=== PATIENT | male | born 1960 | race Caucasian/White ===

== ENCOUNTER 2020-09-17 08:49 | Outpatient (REF) | payer MEDICARE, MEDICAID, SELFPAY ==
--- NOTE | 2020-09-20 08:45 | MHC.AU.P13 ---
Adult Audiological Evaluation Date of Visit: 09/17/20 Reason for Appointment: History of hearing loss. Patient arrives to determine if there has been a change in hearing. Patient reports that he has been experiencing significant sinus congestion. 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 Medical History: Medical History: Diabetes, Head Injury, High Blood Pressure Hearing Instrument History- Right Ear: [employer]ilities Specialist: [employer] Model: Spaces 2 Host M50-312 Serial Number: [id number] Battery Size: 312 Repair Warranty: 07/27/2022 Loss and Damage Warranty: 07/27/2022 Dispensed By: [facility] Date of Fittin05/07/2019 Hearing Instrument History- Left Ear: Regional Facilities Specialist: [employer] Model: Spaces 2 Host M50-312 Serial Number: [id number] Battery Size: 312 Warranty: 07/27/2022 Loss and Damage Warranty: Loss and Damage used for the left instrument Dispensed By: [facility] Date of Fittin05/07/2019 Otoscopy: Right Ear: Partial cerumen- not occluding Left Ear: Partial cerumen- not occluding Tympanometry: Tympanometry performed due to: History of allergies/congestion Right Ear: Normal Middle Ear System (Type A) Left Ear: Hypercompliant Middle Ear System (Type Ad) Hearing Evaluation: Transducer(s) Used: Insert Earphones Method: Conventional Audiometry Stimuli Used: Pure Tones Right Ear: Description of Hearing: Borderline-mild sloping to moderately-severe mixed hearing loss Left Ear: Description of Hearing: Mild sloping to moderately-severe mixed hearing loss Speech Recognition Threshold (SRT): Method Used: Recorded Lists Stimuli Used: Spondee Words Right Ear: 30 dBHL Left Ear: 35 dBHL Word Discrimination: Method: Recorded Lists Word Lists Used: NU-6 Right Ear: 96% at 70 dBHL Left Ear: 88% 70 dBHL Most Comfortable Level (MCL): Right Ear: 70 dBHL Left Ear: 70 dBHL Comparison: Compared to most recent evaluation: There is a conductive component present in today's test, likely a result of patient's significant congestion. The bone conduction thresholds are stable. Recommendations: Audiological re-evaluation in one year. See Hearing Aid Follow-Up note for more information. Diagnosis: Primary Diagnosis: H90.6 Mixed Hearing Loss, Bilateral Services Performed: Comprehensive Audiological Evaluation (CPT 06338), Tympanometry (CPT 08438) Signature: Provider: Salvatore Doll, TASHA-A
== END 2020-09-17 08:50 | disposition home or self-care (01) ==
LOC: HO.SH 08:49
PROVIDERS: Visit Provider Nurse Practitioner Family
DX: Z46.1 Encounter for fitting and adjustment of hearing aid (principal); H90.6 Mixed conductive and sensorineural hearing loss, bilateral
CPT/HCPCS: 92557; 92567; 92593

== ENCOUNTER 2021-05-04 13:05 | Outpatient (RCR) | payer MEDICARE, MEDICAID, SELFPAY | END 2021-05-24 14:50 | disposition home or self-care (01) | LOC: HO.WCC 13:05 | PROVIDERS: PCP Nurse Practitioner Family; Visit Provider Surgery | DX: I87.331 Chronic venous hypertension (idiopathic) with ulcer and inflammation of right lower extremity (principal); L97.812 Non-pressure chronic ulcer of other part of right lower leg with fat layer exposed; I87.312 Chronic venous hypertension (idiopathic) with ulcer of left lower extremity; L97.822 Non-pressure chronic ulcer of other part of left lower leg with fat layer exposed; E11.51 Type 2 diabetes mellitus with diabetic peripheral angiopathy without gangrene; E11.40 Type 2 diabetes mellitus with diabetic neuropathy, unspecified; Z79.4 Long term (current) use of insulin; Z79.899 Other long term (current) drug therapy; Z87.891 Personal history of nicotine dependence | CPT/HCPCS: 29580; 99212 ==

== ENCOUNTER 2021-06-28 09:01 | Outpatient (RCR) | payer MEDICARE, MEDICAID, SELFPAY | END 2021-10-20 09:10 | disposition home or self-care (01) | LOC: HO.WCC 09:01 | PROVIDERS: PCP Nurse Practitioner Family; Visit Provider Physician Assistant | DX: E11.622 Type 2 diabetes mellitus with other skin ulcer (principal); E11.51 Type 2 diabetes mellitus with diabetic peripheral angiopathy without gangrene; I87.332 Chronic venous hypertension (idiopathic) with ulcer and inflammation of left lower extremity; L97.822 Non-pressure chronic ulcer of other part of left lower leg with fat layer exposed; S81.012D Laceration without foreign body, left knee, subsequent encounter; Q82.0 Hereditary lymphedema; L08.9 Local infection of the skin and subcutaneous tissue, unspecified; I87.321 Chronic venous hypertension (idiopathic) with inflammation of right lower extremity; E11.40 Type 2 diabetes mellitus with diabetic neuropathy, unspecified; E66.01 Morbid (severe) obesity due to excess calories; Z87.891 Personal history of nicotine dependence | CPT/HCPCS: 11042; 11045; 29581; 97597; 97598; 99212; 99213; 99214; 99215 ==

== ENCOUNTER 2021-11-02 10:00 | Outpatient (RCR) | payer OTHER, MEDICARE, MEDICAID, SELFPAY | END 2021-11-07 11:35 | disposition home or self-care (01) | LOC: HO.OT 10:00 | PROVIDERS: PCP Nurse Practitioner Family; Visit Provider Physician Assistant | DX: I89.0 Lymphedema, not elsewhere classified (principal) | CPT/HCPCS: 97110; 97140; 97167; 99212 ==

== ENCOUNTER 2022-01-31 09:00 | Outpatient (RCR) | payer MEDICARE, MEDICAID, SELFPAY | END 2022-02-10 10:46 | disposition home or self-care (01) | LOC: HO.WCC 09:00 | PROVIDERS: Visit Provider Physician Assistant | DX: E11.622 Type 2 diabetes mellitus with other skin ulcer (principal); E11.51 Type 2 diabetes mellitus with diabetic peripheral angiopathy without gangrene; L97.822 Non-pressure chronic ulcer of other part of left lower leg with fat layer exposed; S81.011D Laceration without foreign body, right knee, subsequent encounter; L03.116 Cellulitis of left lower limb; Q82.0 Hereditary lymphedema; E66.01 Morbid (severe) obesity due to excess calories; E11.40 Type 2 diabetes mellitus with diabetic neuropathy, unspecified; E11.22 Type 2 diabetes mellitus with diabetic chronic kidney disease; I12.9 Hypertensive chronic kidney disease with stage 1 through stage 4 chronic kidney disease, or unspecified chronic kidney disease; N18.9 Chronic kidney disease, unspecified; Z79.4 Long term (current) use of insulin | CPT/HCPCS: 99214 ==

== ENCOUNTER → 2022-01-31 09:14 | Outpatient (REF) | payer MEDICARE, MEDICAID, SELFPAY | LOC: HO.CARD 09:14 | PROVIDERS: Visit Provider Internal Medicine Cardiovascular Disease | DX: Z13.89 Encounter for screening for other disorder (principal) ==

== ENCOUNTER 2022-02-28 | Outpatient (RCR) | payer MEDICARE, MEDICAID, SELFPAY | END 2022-04-28 09:13 | disposition home or self-care (01) | LOC: HO.WCC | PROVIDERS: Visit Provider Physician Assistant | DX: E11.622 Type 2 diabetes mellitus with other skin ulcer (principal); L97.812 Non-pressure chronic ulcer of other part of right lower leg with fat layer exposed; E11.40 Type 2 diabetes mellitus with diabetic neuropathy, unspecified; E11.51 Type 2 diabetes mellitus with diabetic peripheral angiopathy without gangrene; E11.29 Type 2 diabetes mellitus with other diabetic kidney complication; L03.116 Cellulitis of left lower limb; Q82.0 Hereditary lymphedema; I10 Essential (primary) hypertension; E66.01 Morbid (severe) obesity due to excess calories; Z87.891 Personal history of nicotine dependence | CPT/HCPCS: 11042; 99213; 99214 ==

== ENCOUNTER 2022-06-15 10:16 | Outpatient (RCR) | payer MEDICARE, MEDICAID, SELFPAY | END 2022-06-28 13:35 | disposition home or self-care (01) | LOC: HO.WCC 10:16 | PROVIDERS: Visit Provider Physician Assistant | DX: Z09 Encounter for follow-up examination after completed treatment for conditions other than malignant neoplasm (principal); Q82.0 Hereditary lymphedema; E11.40 Type 2 diabetes mellitus with diabetic neuropathy, unspecified; E11.22 Type 2 diabetes mellitus with diabetic chronic kidney disease; E11.65 Type 2 diabetes mellitus with hyperglycemia; E11.51 Type 2 diabetes mellitus with diabetic peripheral angiopathy without gangrene; I12.9 Hypertensive chronic kidney disease with stage 1 through stage 4 chronic kidney disease, or unspecified chronic kidney disease; N18.9 Chronic kidney disease, unspecified; E66.01 Morbid (severe) obesity due to excess calories; Z87.891 Personal history of nicotine dependence | CPT/HCPCS: 99213 ==

== ENCOUNTER 2022-07-27 08:45 | Outpatient (RCR) | payer MEDICARE, MEDICAID, SELFPAY | END 2022-09-19 13:53 | disposition home or self-care (01) | LOC: HO.WCC 08:45 | PROVIDERS: Visit Provider Surgery | DX: Z09 Encounter for follow-up examination after completed treatment for conditions other than malignant neoplasm (principal); E11.65 Type 2 diabetes mellitus with hyperglycemia; Q82.0 Hereditary lymphedema; Z87.2 Personal history of diseases of the skin and subcutaneous tissue | CPT/HCPCS: 29581; 97597; 97598; 99212; 99213 ==

== ENCOUNTER 2022-11-15 07:48 | Outpatient (RCR) | payer OTHER, SELFPAY | END 2022-12-15 13:46 | disposition home or self-care (01) | LOC: HO.WCC 07:48 | PROVIDERS: PCP Nurse Practitioner Family; Visit Provider Surgery | DX: E11.622 Type 2 diabetes mellitus with other skin ulcer (principal); I87.312 Chronic venous hypertension (idiopathic) with ulcer of left lower extremity; E11.51 Type 2 diabetes mellitus with diabetic peripheral angiopathy without gangrene; L97.822 Non-pressure chronic ulcer of other part of left lower leg with fat layer exposed; S91.301D Unspecified open wound, right foot, subsequent encounter; Q82.0 Hereditary lymphedema; E11.40 Type 2 diabetes mellitus with diabetic neuropathy, unspecified; E11.22 Type 2 diabetes mellitus with diabetic chronic kidney disease; I12.9 Hypertensive chronic kidney disease with stage 1 through stage 4 chronic kidney disease, or unspecified chronic kidney disease; N18.9 Chronic kidney disease, unspecified; E66.9 Obesity, unspecified; Z87.891 Personal history of nicotine dependence | CPT/HCPCS: 11042; 11045; 97597; 97598; 99212 ==

== ENCOUNTER 2023-01-25 13:01 | Outpatient (RCR) | payer OTHER, SELFPAY | END 2023-02-08 16:00 | disposition home or self-care (01) | LOC: HO.WCC 13:01 | PROVIDERS: PCP Nurse Practitioner Family; Visit Provider Surgery | DX: I87.313 Chronic venous hypertension (idiopathic) with ulcer of bilateral lower extremity (principal); L97.822 Non-pressure chronic ulcer of other part of left lower leg with fat layer exposed; L97.812 Non-pressure chronic ulcer of other part of right lower leg with fat layer exposed; E11.40 Type 2 diabetes mellitus with diabetic neuropathy, unspecified; E11.51 Type 2 diabetes mellitus with diabetic peripheral angiopathy without gangrene; E11.22 Type 2 diabetes mellitus with diabetic chronic kidney disease; I12.0 Hypertensive chronic kidney disease with stage 5 chronic kidney disease or end stage renal disease; N18.6 End stage renal disease; Q82.0 Hereditary lymphedema; Z79.85 Long-term (current) use of injectable non-insulin antidiabetic drugs; Z79.4 Long term (current) use of insulin; Z79.82 Long term (current) use of aspirin; Z79.899 Other long term (current) drug therapy | CPT/HCPCS: 11042; 99213 ==

== ENCOUNTER 2023-11-20 15:35 | Observation (INO) | payer MEDICARE, MEDICAID, SELFPAY ==
--- NOTE | ~2023-11-20 | MR_ITS ---
EXAMINATION: MR BRAIN WITHOUT CONTRAST CLINICAL INFORMATION: Encephalopathy. COMPARISON: CT head from 11/20/2023. TECHNIQUE: MRI of the brain was obtained using routine sequences without contrast. FINDINGS: No focal restricted diffusion is demonstrated to suggest acute or subacute cerebral ischemia. No evidence of acute or chronic hemorrhagic products on heme-sensitive imaging. Scattered and partially confluent periventricular, deep white matter, and brainstem T2 FLAIR hyperintensities consistent with moderate underlying microangiopathy. There is a degree of generalized cerebral volume loss with prominence of both the ventricles and sulcal spaces. However, there appears to be mildly disproportionate prominence of the ventricles. The posterior callosal angle is decreased (68 degrees) when measured on a corrected coronal image, orthogonal to the anterior commissure-posterior commissure line. No abnormal mass effect. No midline shift. Normal appearance of the pituitary gland. Normal positioning of the cerebellar tonsils. Normal arterial and venous vascular flow voids are present. Normal, homogeneous marrow signal. Atelectasis of the right maxillary sinus. Mild mucosal thickening of the paranasal sinuses. No signal abnormalities within the mastoids. MR/MR head/brain wo con IMPRESSION: 1. No acute intracranial abnormalities. 2. Moderate underlying microangiopathy. 3. There is a degree of generalized cerebral volume loss with prominence of both the ventricles and sulcal spaces. However, there appears to be mildly disproportionate prominence of the ventricles. This may be due to disproportionate central volume loss; however, correlation with symptoms of potential superimposed normal pressure hydrocephalus is recommended.
--- NOTE | ~2023-11-20 | CT_ITS ---
EXAMINATION: CT HEAD WITHOUT CONTRAST CLINICAL INFORMATION: Multiple falls. Progressive confusion. COMPARISON: None available. TECHNIQUE: Contiguous axial imaging was performed from the skull base to vertex without intravenous administration of contrast. This CT examination was performed using dose optimization techniques as appropriate, variously including the following: *Automated exposure control. *Adjustment of mA and/or kV according to patient size (this includes techniques or standardized protocols for targeted exams where dose is matched to indication/reason for exam; i.e. extremities or head). *Use of iterative reconstruction technique. DLP: 822 mGy-cm FINDINGS: There is no evidence of acute intracranial hemorrhage or edematous territorial infarction. Mcguire-white matter differentiation is preserved. Scattered and partially confluent hypoattenuation in the periventricular and deep white matter are consistent with moderate microangiopathy. There is a degree of generalized cerebral volume loss with prominence of both the ventricles and sulcal spaces. However, there appears to be mildly disproportionate prominence of the ventricles. The posterior callosal angle is decreased (71 degrees) when measured on a corrected coronal image, orthogonal to the anterior commissure-posterior commissure line. No abnormal mass effect or midline shift. No extra-axial fluid collections. Calcific atherosclerotic disease of the intracranial internal carotid arteries. No hyperdense vessel sign. No acute soft tissue or osseous abnormalities. Mild to moderate mucosal thickening of the right maxillary sinus with hyperostotic changes of the downs. Mild mucosal thickening of the remaining paranasal sinuses. Moderate leftward nasal septal deviation with spurring. The mastoid air cells and middle ear cavities are clear. CT/CT head/brain wo IV con IMPRESSION: 1. No evidence of acute intracranial hemorrhage or edematous territorial infarction. 2. Moderate underlying microangiopathy. 3. There is a degree of generalized cerebral volume loss with prominence of both the ventricles and sulcal spaces. However, there appears to be mildly disproportionate prominence of the ventricles. This may be due to disproportionate central volume loss; however, correlation with symptoms of potential superimposed normal pressure hydrocephalus is recommended.
[2023-11-20 15:45] VITALS: BP 180/96; PULSE 80; O2SAT 92
[2023-11-20 15:53] VITALS: BP 161/85; PULSE 79; RESP 16; TEMP 36.7; O2SAT 96; BMI 47.3
[2023-11-20 16:08] LABS: Glucose, Whole Blood 409 mg/dL (60-115)
--- NOTE | 2023-11-20 16:27 | ED.GENADULT ---
HPI - General Adult General Chief complaint: Altered Mental Status Stated complaint: hyperglycemic at nephrology appt, lethargic Time Seen by Provider: 11/20/23 16:17 Source: patient Mode of arrival: EMS Limitations: no limitations History of Present Illness HPI narrative: Patient is a 63-year-old male who presents to the emergency department coming today from? Nephrology's office. Advised by nursing staff he was brought in by ambulance from Dr. Sparks's office, although I do not have any available records from Nephrology, unclear whether he has ever been seen by this Nephrology office in the past or whether this was a follow-up visit. When asking the patient why he is here he reports that he has to infections 1 in the urinary tract and 1 higher in the urinary tract. He states he has not currently on antibiotics. However, on initial exam he is noted to have a PICC line to the right upper arm, when asked why this is there he states that he was seen at [facility] and was advised that he has 2 bugs in his blood . Reports he is taking antibiotics twice a day, though it is unclear who is administering these. He is oriented to person disoriented to place time and event. He denies any recent fall or head injury Related Data Allergies Allergy/AdvReac Type Severity Reaction Status Date / Time Unable to Assess Allergy Verified 11/20/23 16:18 Review of Systems Review of Systems: Yes all other systems are reviewed and are negative PMFSH Past Medical History Attestation statement: The following information was validated with the patient. Source: old records reviewed Social History Social History Smoked in Last 30 Days: No Use of substances other than those prescribed or required for medical reasons: No Advance Directives: No Advance Directives Information Provided: No Physical Exam ED Vital Signs: Vital Signs - 24 hr 11/20/23 15:53 11/20/23 18:00 11/20/23 19:06 Temperature 98.1 F 98.0 F 97.2 F Pulse Rate 79 72 77 Respiratory Rate 16 16 16 Blood Pressure 161/85 H 161/88 H 176/91 H Pulse Oximetry 96 97 95 Oxygen Delivery Method Room Air Room Air Room Air 11/20/23 21:35 11/21/23 00:00 11/21/23 02:49 Temperature 98.1 F 98.2 F 97.9 F Pulse Rate 84 76 74 Respiratory Rate 16 16 16 Blood Pressure 149/89 H 156/69 H 146/83 H Pulse Oximetry 98 93 95 Oxygen Delivery Method Room Air Room Air Room Air 11/21/23 04:15 11/21/23 06:23 Temperature Pulse Rate 75 71 Respiratory Rate 20 16 Blood Pressure 137/77 157/79 H Pulse Oximetry 95 96 Oxygen Delivery Method Room Air Room Air BMI result Body Mass Index 47.3 Appearance: Alert.?Oriented to person disoriented to place time and event. No acute distress.?Normal affect. Eyes: Pupils equal, round and reactive to light.? ENT: Pharynx normal.?? Neck: Normal inspection.? Neck supple.?? CVS: Heart sounds normal. Normal heart rate and rhythm.? Pulses normal.?? Respiratory: No respiratory distress.? Lung sounds clear to auscultation bilaterally?? Abdomen: Soft diffuse tenderness upon palpation. Normoactive bowel sounds. Bilateral CVA tenderness Skin: Skin warm and dry.? Normal skin color.? ? Extremities: No lower extremity edema.? No calf ttp? Neuro: Moves all extremities spontaneously. Sensation intact bilaterally. No focal neuro deficits. Course Course Course Narrative: 11/21/2023 0708 --> Physician observation continues. Patient followed by CM. Reevaluation(s) Reevaluation #1: Received records from [facility]; he presented there on 11/03/2023 was admitted and discharged on 11/06; sepsis, metabolic encephalopathy, severe cystitis with bilateral ascending pyelitis and pyelonephritis E coli resistant to Zosyn therefore transitioned to your opinion in discharged with midline which was inserted on 11/09/2023 for ertapenem while at short-term rehab, anticipated last dose of antibiotics would be 11/20/2023. Per [facility] records baseline creatinine of 2.4, presented there with creatinine of 3.5, at the time of discharge continued to be around 3.7, nephrology anticipating that this will likely improve as the ATN improves. Time: 17:40 Reevaluation #2: CBC without leukocytosis, normocytic anemia. VBG within normal range, non-anion gap hyperglycemia, no evidence of DKA. Patient receive insulin lispro 10 units subcutaneously Creatinine appears at baseline when compared to records from [facility] as noted above. Time: 18:34 Reevaluation #3: Urinalysis is without evidence of infection, has baseline incontinence. Patient has HCP/sister Ginger is at bedside. At this time she informs me that patient has had multiple falls over the past week reportedly at least 4. She was not made aware of these by staff at the facility. He has not had any evaluation or CT scan after these falls. It is unclear whether there has been any head strike. Evidently daughter was made aware of these falls when she went into visit, unfortunately she did not discuss this with me earlier when we spoke on the phone. Since being in the emergency department he has reported to his daughter and sister that he is seeing bugs crawling on the ceiling, they confirm at this time that although he has had progressive confusion even since his [facility] admission, he has not had visual hallucinations or any history of visual hallucinations. Plan to obtain CT of the head to exclude acute pathology. Will also check ammonia level just to be certain that this is not cause for progression. Think less likely that hallucinations are medication side effect from your opinion. Family expressing concern that they did not wish he return to [facility] re[facility] Time: 21:01 Additional Reevaluation(s): 23:00 CT head without acute intracranial pathology. Placed in physician observation, vitals stable, no distress, PT/case management evaluation to ensue, as family requested that he not return to current short-term rehab. In addition will obtain Psychiatry consultation for new vision hallucinations with progressive confusion. Medications Administered Discontinued Medications Generic Name Dose Route Start Last Admin Trade Name Freq PRN Reason Stop Dose Admin Insulin Human Lispro 10 unit 11/20/23 18:36 11/20/23 18:58 Insulin Lispro 100 Unit/Ml 3 Ml Vial SUBCUT 11/20/23 18:37 10 unit ONCE ONE Administration Medical Decision Making Medical Decision Making [facility] Narrative: Patient is a 63-year-old male past medical history of CKD stage 3, hypertension, type 2 diabetes, history of MRSA, hypertension, depression, BUD, obesity presenting to emergency department from Nephrology office due to lethargy altered mental status and hyperglycemia. 16:36 - Spoke with patients daughter Tarah - reports 2 weeks ago dx. UTI, bacteremia ?E. Coli at [facility]. Currently resides at [place] for acute rehab. Per Tarah the confusion has been worse, requires 2 person assist for transfer. Daughter reports he has previously been prescribed Mounjaro for management of DM, SNF staff had changed to Ellie. aTrah advises me I may contact patients sister who is an RN/ HCP - Ginger Potter [phone] Differential Diagnosis Differential Diagnoses: The differential diagnosis associated with the presentation includes (Pyelonephritis, hydronephrosis, obstructive calculi, bacteremia, metabolic encephalopathy, electrolyte derangement, YARELIS v. CKD, DKA, hyperglycemia, poorly managed diabetes mellitus) Admission/Observation Consideration of admission/observation: Escalation of care including admission/observation considered (See narrative above in course narrative for further detail) Lab Data MDM Lab Attestation statement: I reviewed the patient's lab results. (See course narrative) 11/20/23 17:26 11/20/23 17:26 Labs: Lab Results 11/20/23 11/20/23 11/20/23 Range/Units 16:03 17:26 17:28 WBC 7.1 (4.8-10.8) X10*3/uL RBC 3.95 L (4.60-5.80) X10*6/uL Hgb 11.9 L (14.0-18.0) g/dl Hct 36.3 L (42.0-52.0) % MCV 91.9 (80.0-98.0) fL MCH 30.1 (27.0-33.0) pg MCHC 32.8 (31.0-36.0) g/dl RDW 12.7 (11.0-16.0) % Plt Count 284 (160-400) X10*3/uL MPV 9.7 (9.4-12.4) fL Immature Gran % (Auto) 0.1 (0.0-0.4) % Neut % (Auto) 69.8 (45-73) % Lymph % (Auto) 17.5 L (20-40) % [place] % (Auto) 8.3 (2-11) % Eos % (Auto) 3.9 (0-4) % Baso % (Auto) 0.4 (0-2) % Lymph # (Auto) 1.3 (1.2-4.9) X10*3/uL Marathon # (Auto) 0.6 (0.1-1.2) X10*3/uL Eos # (Auto) 0.3 (0.0-0.4) X10*3/uL Baso # (Auto) 0.0 (0.0-0.2) X10*3/uL Abs Immat Gran (auto) 0.01 (0.00-0.03) X10*3/uL Absolute Neuts (auto) 5.0 (2.0-8.3) x10*3/uL Absolute Nucleated RBC 0.000 (0.0-0.012) X10*3/uL Nucleated RBC % (auto) 0.0 (0.0-0.2) /100WBC VBG pH (7.32-7.43) VBG pCO2 mmHg VBG pO2 mmHg VBG HCO3 (22-26) mmol/L VBG O2 Saturation % VBG Base Excess mmol/L Sodium 140 (135-145) mmol/L Potassium 4.8 (3.3-5.1) mmol/L Chloride 109 H (96-108) mmol/L Carbon Dioxide 25 (22-29) mmol/L Anion Gap 11 L (12-20) BUN 50 H (9-16) mg/dL Creatinine 3.57 H (0.5-1.4) mg/dL Estim Creat Clear Calc 31.0 Estimated GFR 17 POC Glucose 409 H* (60-115) mg/dL Random Glucose 444 H* (60-115) mg/dL Lactic Acid 1.1 (0.5-2.0) mmol/L Calcium 9.1 (8.4-10.2) mg/dL Total Bilirubin 0.2 (0.0-1.0) mg/dL AST 18 (5-37) U/L ALT 24 (0-40) U/L Alkaline Phosphatase 125 H (39-117) U/L Ammonia (13-55) umol/L Troponin I High Sens 3.4 (<3.5-35.0) ng/L B-Natriuretic Peptide 13 (<100) pg/mL Total Protein 6.6 (6.5-8.0) g/dL Albumin 3.1 L (3.5-5.0) g/dL Beta-Hydroxybutyrate 0.04 (0.02-0.27) mmol/L Urine Color Urine Appearance Urine pH (5.0-9.0) Ur Specific [place] (1.005-1.025) Urine Protein (Neg-Trace) mg/dL Urine Glucose (UA) (Negative) mg/dL Urine Ketones (Negative) mg/dL Urine Blood (Negative) Urine Nitrite (Negative) Ur Leukocyte Esterase (Negative) Urine RBC (0-2) /HPF Urine WBC (0-5) /HPF Ur Squamous Epith Cells (0-2) /HPF Urine Bacteria (None Seen) Hyaline Casts (0-2) /LPF 11/20/23 11/20/23 11/20/23 Range/Units 17:31 18:10 19:29 WBC (4.8-10.8) X10*3/uL RBC (4.60-5.80) X10*6/uL Hgb (14.0-18.0) g/dl Hct (42.0-52.0) % MCV (80.0-98.0) fL MCH (27.0-33.0) pg MCHC (31.0-36.0) g/dl RDW (11.0-16.0) % Plt Count (160-400) X10*3/uL MPV (9.4-12.4) fL Immature Gran % (Auto) (0.0-0.4) % Neut % (Auto) (45-73) % Lymph % (Auto) (20-40) % Marathon % (Auto) (2-11) % Eos % (Auto) (0-4) % Baso % (Auto) (0-2) % Lymph # (Auto) (1.2-4.9) X10*3/uL Marathon # (Auto) (0.1-1.2) X10*3/uL Eos # (Auto) (0.0-0.4) X10*3/uL Baso # (Auto) (0.0-0.2) X10*3/uL Abs Immat Gran (auto) (0.00-0.03) X10*3/uL Absolute Neuts (auto) (2.0-8.3) x10*3/uL Absolute Nucleated RBC (0.0-0.012) X10*3/uL Nucleated RBC % (auto) (0.0-0.2) /100WBC VBG pH 7.36 (7.32-7.43) VBG pCO2 44 mmHg VBG pO2 57 mmHg VBG HCO3 25 (22-26) mmol/L VBG O2 Saturation 86.0 % VBG Base Excess 0.2 mmol/L Sodium (135-145) mmol/L Potassium (3.3-5.1) mmol/L Chloride (96-108) mmol/L Carbon Dioxide (22-29) mmol/L Anion Gap (12-20) BUN (9-16) mg/dL Creatinine (0.5-1.4) mg/dL Estim Creat Clear Calc Estimated GFR POC Glucose 373 H* (60-115) mg/dL Random Glucose (60-115) mg/dL Lactic Acid (0.5-2.0) mmol/L Calcium (8.4-10.2) mg/dL Total Bilirubin (0.0-1.0) mg/dL AST (5-37) U/L ALT (0-40) U/L Alkaline Phosphatase (39-117) U/L Ammonia (13-55) umol/L Troponin I High Sens (<3.5-35.0) ng/L B-Natriuretic Peptide (<100) pg/mL Total Protein (6.5-8.0) g/dL Albumin (3.5-5.0) g/dL Beta-Hydroxybutyrate (0.02-0.27) mmol/L Urine Color Yellow Urine Appearance Clear Urine pH 5.5 (5.0-9.0) Ur Specific [place] 1.025 (1.005-1.025) Urine Protein >=1000 (4+) H (Neg-Trace) mg/dL Urine Glucose (UA) >=1000 H (Negative) mg/dL Urine Ketones Negative (Negative) mg/dL Urine Blood Negative (Negative) Urine Nitrite Negative (Negative) Ur Leukocyte Esterase Negative (Negative) Urine RBC 0-2 (0-2) /HPF Urine WBC 0-5 (0-5) /HPF Ur Squamous Epith Cells 0-2 (0-2) /HPF Urine Bacteria None Seen (None Seen) Hyaline Casts 0-2 (0-2) /LPF 11/20/23 11/20/23 11/20/23 Range/Units 19:57 21:38 21:44 WBC (4.8-10.8) X10*3/uL RBC (4.60-5.80) X10*6/uL Hgb (14.0-18.0) g/dl Hct (42.0-52.0) % MCV (80.0-98.0) fL MCH (27.0-33.0) pg MCHC (31.0-36.0) g/dl RDW (11.0-16.0) % Plt Count (160-400) X10*3/uL MPV (9.4-12.4) fL Immature Gran % (Auto) (0.0-0.4) % Neut % (Auto) (45-73) % Lymph % (Auto) (20-40) % Marathon % (Auto) (2-11) % Eos % (Auto) (0-4) % Baso % (Auto) (0-2) % Lymph # (Auto) (1.2-4.9) X10*3/uL Marathon # (Auto) (0.1-1.2) X10*3/uL Eos # (Auto) (0.0-0.4) X10*3/uL Baso # (Auto) (0.0-0.2) X10*3/uL Abs Immat Gran (auto) (0.00-0.03) X10*3/uL Absolute Neuts (auto) (2.0-8.3) x10*3/uL Absolute Nucleated RBC (0.0-0.012) X10*3/uL Nucleated RBC % (auto) (0.0-0.2) /100WBC VBG pH (7.32-7.43) VBG pCO2 mmHg VBG pO2 mmHg VBG HCO3 (22-26) mmol/L VBG O2 Saturation % VBG Base Excess mmol/L Sodium (135-145) mmol/L Potassium (3.3-5.1) mmol/L Chloride (96-108) mmol/L Carbon Dioxide (22-29) mmol/L Anion Gap (12-20) BUN (9-16) mg/dL Creatinine (0.5-1.4) mg/dL Estim Creat Clear Calc Estimated GFR POC Glucose 311 H 275 H (60-115) mg/dL Random Glucose (60-115) mg/dL Lactic Acid (0.5-2.0) mmol/L Calcium (8.4-10.2) mg/dL Total Bilirubin (0.0-1.0) mg/dL AST (5-37) U/L ALT (0-40) U/L Alkaline Phosphatase (39-117) U/L Ammonia 14 (13-55) umol/L Troponin I High Sens (<3.5-35.0) ng/L B-Natriuretic Peptide (<100) pg/mL Total Protein (6.5-8.0) g/dL Albumin (3.5-5.0) g/dL Beta-Hydroxybutyrate (0.02-0.27) mmol/L Urine Color Urine Appearance Urine pH (5.0-9.0) Ur Specific [place] (1.005-1.025) Urine Protein (Neg-Trace) mg/dL Urine Glucose (UA) (Negative) mg/dL Urine Ketones (Negative) mg/dL Urine Blood (Negative) Urine Nitrite (Negative) Ur Leukocyte Esterase (Negative) Urine RBC (0-2) /HPF Urine WBC (0-5) /HPF Ur Squamous Epith Cells (0-2) /HPF Urine Bacteria (None Seen) Hyaline Casts (0-2) /LPF Radiology Impression Discussion of test interpretation with radiology: I have reviewed the radiologist's reading. Radiologist Impression: CT/CT head/brain wo IV con IMPRESSION: 1. No evidence of acute intracranial hemorrhage or edematous territorial infarction. 2. Moderate underlying microangiopathy. 3. There is a degree of generalized cerebral volume loss with prominence of both the ventricles and sulcal spaces. However, there appears to be mildly disproportionate prominence of the ventricles. This may be due to disproportionate central volume loss; however, correlation with symptoms of potential superimposed normal pressure hydrocephalus is recommended. Independent Historian Clinical information obtained from an independent historian. History obtained from or confirmed by: Other (See narrative above) Critical Care Time Critical Care Time Critical Care Time: Yes Total Critical Care Time: 75 Attestation: I personally attest to this critical care time spent taking care of the patient exclusive of all other billable procedures was approximately 75 minutes including initial evaluation of patient, ordering tests, CT interpretation, medical consultation, documentation, re-evaluation. Discharge Plan Discharge Clinical Impression: Altered mental status, Hallucinations, Hyperglycemia Patient Disposition: Still a Patient
--- NOTE | 2023-11-20 17:31 | MHC.CM.ED ---
Addendum entered by Joslyn Sandoval 11/20/23 21:21: Family expressed to provider wish that patient not return to [facility]. Medical work up continuing. Addendum entered by Joslyn Sandoval 11/20/23 18:56: Patient's sister/HCP #1 Ginger Potter ([phone]), arrived and was able to provide much hx regarding patient. Pt had a TBI and cannot live alone due to memory loss.. Pt was living with her, but moved into [facility] in [place] in July of 2023. It's an PRISCA. He has med management. meals and assist with ADL's. Pt was admitted to [facility] 2 weeks ago with urosepsis and was discharged to [facility] for IV antibiotics and STR. PCP is David Willis [facility] [address] [facility] HCP #2/daughter Tarah Marcano ([phone]).Pt has a MOLST, DNR/DNI, would consider short term dialysis. The address listed at [address] [place] [address] in [place] is his mailing address and where his sister and daughter live. Pt's insurance has changed from [employer] to [employer] [facility]. CM spoke with registration with regarding address change, MOLST and insurance changes. Daughter will bring in insurance cards tonMoxie Jean. Pt has not been discharged from Pt lives in [place] Uses a walker and CPAP Family is very involved in his care. D/.C plan: Return to SNF via S Original Note: Recent medical record hospitalization received from [facility] and given to provider. Awaiting fax from [facility]. Spoke with nurse at facility. Requested progress notes, VS, labs and medication list.
[2023-11-20 17:34] LABS: MANUAL DIFF FLAG NO
[2023-11-20 17:37] LABS: VBG Base Excess 0.2 mmol/L; VBG HCO3 25 mmol/L (22-26); VBG pCO2 44 mmHg; VBG pH 7.36 (7.32-7.43); VBG pO2 57 mmHg
[2023-11-20 17:37] LABS: Venous Blood Gas Refer to POC result
[2023-11-20 17:40] LABS: Basophils Percent Auto 0.4 % (0-2); Eosinophils Absolute Auto 0.3 X10*3/uL (0.0-0.4); Eosinophils Percent Auto 3.9 % (0-4); Hematocrit 36.3 % (42.0-52.0); Hemoglobin 11.9 g/dl (14.0-18.0); Imm Gran Abs Auto 0.01 X10*3/uL (0.00-0.03); Imm Gran Pct Auto 0.1 % (0.0-0.4); Lymphocytes Absolute Auto 1.3 X10*3/uL (1.2-4.9); Lymphocytes Percent Auto 17.5 % (20-40); Mean Corpuscular HGB Conc 32.8 g/dl (31.0-36.0); Mean Corpuscular Hemoglobin 30.1 pg (27.0-33.0); Mean Corpuscular Volume 91.9 fL (80.0-98.0); Mean Platelet Volume 9.7 fL (9.4-12.4); Monocytes Absolute Auto 0.6 X10*3/uL (0.1-1.2); Monocytes Percent Auto 8.3 % (2-11); Neutrophils Percent Auto 69.8 % (45-73); Platelet Count 284 X10*3/uL (160-400); Red Blood Count 3.95 X10*6/uL (4.60-5.80); Red Cell Distribution Width 12.7 % (11.0-16.0); White Blood Count 7.1 X10*3/uL (4.8-10.8)
[2023-11-20 17:45] LABS: Lactic Acid 1.1 mmol/L (0.5-2.0)
[2023-11-20 17:50] LABS: Beta-Hydroxybutyrate 0.04 mmol/L (0.02-0.27)
[2023-11-20 17:55] LABS: B Type Natriuretic Peptide 13 pg/mL (<100)
[2023-11-20 17:56] LABS: Alanine Aminotransferase 24 U/L (0-40); Albumin Level 3.1 g/dL (3.5-5.0); Alkaline Phosphatase 125 U/L (39-117); Anion Gap 11 (12-20); Aspartate Amino Transferase 18 U/L (5-37); Bilirubin Total 0.2 mg/dL (0.0-1.0); Blood Urea Nitrogen 50 mg/dL (9-16); Calcium 9.1 mg/dL (8.4-10.2); Carbon Dioxide 25 mmol/L (22-29); Chloride 109 mmol/L (96-108); Estimated Glomerular Filt Rate 17; Glucose Random 444 mg/dL (60-115); Potassium 4.8 mmol/L (3.3-5.1); Sodium 140 mmol/L (135-145); Total Protein 6.6 g/dL (6.5-8.0)
[2023-11-20 17:57] LABS: Troponin-I High Sensitivity 3.4 ng/L (<3.5-35.0)
[2023-11-20 18:00] VITALS: BP 161/88; PULSE 72; RESP 16; TEMP 36.7; O2SAT 97
[2023-11-20] MEDS: Insulin Lispro 100 UNIT/ML 3 ML VIAL 10 UNIT SUBCUT (18:58)
[2023-11-20 19:06] VITALS: BP 176/91; PULSE 77; RESP 16; TEMP 36.2; O2SAT 95
--- NOTE | 2023-11-20 19:10 | MHC.EDTECH ---
PATIENT WAS CHANGE INTO HOSPITAL ATTIRE ,PATIENT WAS INCONTINENT OF URINE ,CARE GIVEN ,BLADDER SCAN DONE ,RN YULIANA IS AWARTE OF RESULT ,VITALS TAKEN AND PATIENT WAS HOOKED UP TO [employer] ,PATIENT WATCHING TELEVISION ,PATIENT SISTER AT BEDSIDE .
[2023-11-20 19:23] LABS: Glucose, Whole Blood 373 mg/dL (60-115)
[2023-11-20 19:42] LABS: Appearance Urine Clear; Color Urine Yellow; Glucose Urine UA >=1000 mg/dL (Negative); Leukocyte Esterase Urine Negative (Negative); Nitrite Urine Negative (Negative); PH 5.5 (5.0-9.0); Specific Gravity - Urine 1.025 (1.005-1.025); UMIC TRIGGER UACC YES; Urine Blood Negative (Negative); Urine Ketones Negative (Negative); Urine Protein >=1000 (4+) mg/dL (Neg-Trace)
[2023-11-20 20:04] LABS: Glucose, Whole Blood 311 mg/dL (60-115)
[2023-11-20 20:05] LABS: Bacteria Urine None Seen (None Seen); Hyaline Casts Urine 0-2 /LPF (0-2); RBC Urine 0-2 /HPF (0-2); Squamous Epithelial Cell Urine 0-2 /HPF (0-2); WBC Urine 0-5 /HPF (0-5)
[2023-11-20 21:35] VITALS: BP 149/89; PULSE 84; RESP 16; TEMP 36.7; O2SAT 98
--- NOTE | 2023-11-20 21:45 | MHC.EDTECH ---
patient amonia level drawn and sent to lab ,vitals taken .
[2023-11-20 22:01] LABS: Ammonia 14 umol/L (13-55)
--- NOTE | 2023-11-20 22:01 | MHC.EDTECH ---
Patient was assisted unto bed amaro to have a bowel movement ,Patient did not had a bowel movement ,instead ,patient was incontinent of urine ,care given and vitals taken .
--- NOTE | 2023-11-20 22:24 | PC.NURSE ---
Patient intermittently restless on the stretcher, on and off bedpan with no success, per family patient is seeing bugs , provider aware.
[2023-11-20 22:51] LABS: Glucose, Whole Blood 275 mg/dL (60-115)
--- NOTE | 2023-11-20 23:42 | PC.NURSE ---
Took report from off-going RN, pt is a 63 y/o male coming from a SNF who presented for evaluation of altered mental status, disorientation, and a kidney infection. Pt is confused at baseline with a history of multiple falls. Has a midline in right arm. Consult with psych is pending for the am. Will continue to monitor for changes.
[2023-11-21] VITALS (10 sets, daily range): BP systolic 137–169; BP diastolic 65–91; PULSE 64–76; RESP 15–20; TEMP 36.1–36.8; O2SAT 93–97
--- NOTE | 2023-11-21 00:10 | MHC.EDTECH ---
0000 rounding done ,vitals taken ,pt was a max asst of 3 person to bedside commode ,Patient had a medium firm bowel movement ,care given ,Pt was assisted back into bed ,Patient had a tuna fish sandwich and apple juice for snack ,Patient daughter took all clothing home ,Patient sitting up in bed watching television and eating ,Call pinto within Patient reach .
--- NOTE | 2023-11-21 01:06 | MHC.EDTECH ---
Patient was attempting to climb out of bed ,camrea in Place .
--- NOTE | 2023-11-21 02:52 | MHC.EDTECH ---
0200 ROUNDING DONE ,VITALS TAKEN ,PT STILL VERY CONFUSED AND IS HALLUCINATING ,PATIENT STATES WE NEED TO CALL AN FIELD NURSE CASE MANAGER TO GET RID OF THE FLIES ON THE WALL .
--- NOTE | 2023-11-21 03:06 | MHC.EDTECH ---
FRESH PITCHER WATER GIVEN .
[2023-11-21 07:29] LABS: Glucose, Whole Blood 157 mg/dL (60-115)
[2023-11-21 09:11] LABS: COVID-19 Test Negative (Negative); IDNOW Serial# 152EDE1D
--- NOTE | 2023-11-21 11:58 | MHC.CM.ED ---
Addendum entered by Keerthi Allred 11/21/23 13:43: Received return telephone call from Ginger. Ginger does not want patient to return to [facility] for a couple of reasons. 1st, patient fell 4 times since being there. Also, patient was able to ambulate with a walker prior to going to [facility]. Facility has been putting patient in a wheelchair and putting him in the activity room. Ginger doesn't feel patient is receiving physical therapy. [facility] ID also stated patient would be on IV antibiotics for 6 weeks. Per [facility], IV antibiotics were d/c'd on 11/19. Ginger aware referral broadcasted in [facility] to see which facilities are contracted with his [facility] program and have bed availability. Original Note: Patient remains in ER. Physical therapy eval completed. Short term rehab is recommended. Patient was at [facility]. However, patient's sister/HCP, Ginger doesn't want patient to return. Attempted to speak with Ginger via telephone at [phone]. Left voicemail requesting return telephone call. Patient is active with [facility]. [facility] is only contracted with certain facilities. May be difficult to find placement due to this. Will wait for return telephone call from Ginger before providing. Continue to monitor for d/c needs.
--- NOTE | 2023-11-21 12:40 | PC.NURSE ---
pt found to be trying to get out of bed via sitter camera. pt found to be saturated in urine. pt cleaned up with full bed change. pt sts he is in [place], getting clean clothes from his old house . pt sts the year is [birth year]37 and does not know the name of the current president. pt given call pinto, tv is on, and sitter camera in place for pt safety. rr even/unlabored. plan of care ongoing.
[2023-11-21 13:11] LABS: Glucose, Whole Blood 161 mg/dL (60-115)
--- NOTE | 2023-11-21 13:25 | P.CNPS_ITS ---
History of Present Illness Date of Service: 11/21/2023 Chief Complaint: hypoglycemic at nephrology appt, lethargic Reason for Consult: Requesting physician: Daisy Contreras Discussed with referring provider: Yes Sources of Information: patient interviewed, chart reviewed and crisis/core team assessment reviewed HPI Narrative: Mr. Marcano is a 63 year-old male who was brought to [facility] ED due to increase confusion. Per records- he presented initially to [facility] on 11/03/2023, was admitted and discharged on 11/06; sepsis, metabolic encephalopathy, severe cystitis with bilateral ascending pyelitis and pyelonephritis E coli resistant to Zosyn therefore transitioned to your opinion in discharged with midline which was inserted on 11/09/2023 for ertapenem while at short-term rehab, anticipated last dose of antibiotics would be 11/20/2023. In the ED, CBC without leukocitosys. Elevated BUN 50, Cr 3.57, creatinine clearance 31. Pt has been afebrile. He had a head CT that although it shows chronic finding such as moderate microangiopathy, also describes DISPROPORTIONATE PROMINENCE OF THE VENTRICLE correlate clinically to r/u NPH. In the ED, pt continued to present as confused as to why he was here, not oriented to place although able to identify this is a hospital. It appears that pt had also reported seeing bugs on the ceiling. Psychiatry was consulted to assess auditory hallucinations. Pt seen in the ED. He appears somnolent difficult to wake up at times. He reports he is not sure why he is here, he states you need to ask the civil engineering assistant. He reports he is in [place]. This sports book writer along with YOKASTA Contreras attempted to have pt ambulate. He was able to stand up but when asked to move feet forward, despite him saying that he was able to move it forward it did not move forward. Diagnostics Vital Signs (24Hr): Vital Signs - 24 hr 11/20/23 15:53 11/20/23 18:00 11/20/23 19:06 Temperature 98.1 F 98.0 F 97.2 F Pulse Rate 79 72 77 Respiratory Rate 16 16 16 Blood Pressure 161/85 H 161/88 H 176/91 H Pulse Oximetry 96 97 95 Oxygen Delivery Method Room Air Room Air Room Air 11/20/23 21:35 11/21/23 00:00 11/21/23 02:49 Temperature 98.1 F 98.2 F 97.9 F Pulse Rate 84 76 74 Respiratory Rate 16 16 16 Blood Pressure 149/89 H 156/69 H 146/83 H Pulse Oximetry 98 93 95 Oxygen Delivery Method Room Air Room Air Room Air 11/21/23 04:15 11/21/23 06:23 11/21/23 13:09 Temperature 98.1 F Pulse Rate 75 71 74 Respiratory Rate 20 16 16 Blood Pressure 137/77 157/79 H 137/83 Pulse Oximetry 95 96 95 Oxygen Delivery Method Room Air Room Air Room Air BMI result Body Mass Index 47.3 Labs 11/20/23 17:26 11/21/23 13:19 Labs: Laboratory Results - last 48 hr 11/20/23 11/20/23 11/20/23 16:03 17:26 17:28 WBC 7.1 RBC 3.95 L Hgb 11.9 L Hct 36.3 L MCV 91.9 MCH 30.1 MCHC 32.8 RDW 12.7 Plt Count 284 MPV 9.7 Immature Gran % (Auto) 0.1 Neut % (Auto) 69.8 Lymph % (Auto) 17.5 L [place] % (Auto) 8.3 Eos % (Auto) 3.9 Baso % (Auto) 0.4 Lymph # (Auto) 1.3 [place] # (Auto) 0.6 Eos # (Auto) 0.3 Baso # (Auto) 0.0 Abs Immat Gran (auto) 0.01 Absolute Neuts (auto) 5.0 Absolute Nucleated RBC 0.000 Nucleated RBC % (auto) 0.0 VBG pH VBG pCO2 VBG pO2 VBG HCO3 VBG O2 Saturation VBG Base Excess Sodium 140 Potassium 4.8 Chloride 109 H Carbon Dioxide 25 Anion Gap 11 L BUN 50 H Creatinine 3.57 H Estim Creat Clear Calc 31.0 Estimated GFR 17 POC Glucose 409 H* Random Glucose 444 H* Lactic Acid 1.1 Calcium 9.1 Total Bilirubin 0.2 AST 18 ALT 24 Alkaline Phosphatase 125 H Ammonia Troponin I High Sens 3.4 B-Natriuretic Peptide 13 Total Protein 6.6 Albumin 3.1 L Beta-Hydroxybutyrate 0.04 Urine Color Urine Appearance Urine pH Ur Specific [facility] Urine Protein Urine Glucose (UA) Urine Ketones Urine Blood Urine Nitrite Ur Leukocyte Esterase Urine RBC Urine WBC Ur Squamous Epith Cells Urine Bacteria Hyaline Casts COVID-19 ([facility]RA[facility]N) COVID-19 Clin Com 11/20/23 11/20/23 11/20/23 17:31 18:10 19:29 WBC RBC Hgb Hct MCV MCH MCHC RDW Plt Count MPV Immature Gran % (Auto) Neut % (Auto) Lymph % (Auto) [place] % (Auto) Eos % (Auto) Baso % (Auto) Lymph # (Auto) [place] # (Auto) Eos # (Auto) Baso # (Auto) Abs Immat Gran (auto) Absolute Neuts (auto) Absolute Nucleated RBC Nucleated RBC % (auto) VBG pH 7.36 VBG pCO2 44 VBG pO2 57 VBG HCO3 25 VBG O2 Saturation 86.0 VBG Base Excess 0.2 Sodium Potassium Chloride Carbon Dioxide Anion Gap BUN Creatinine Estim Creat Clear Calc Estimated GFR POC Glucose 373 H* Random Glucose Lactic Acid Calcium Total Bilirubin AST ALT Alkaline Phosphatase Ammonia Troponin I High Sens B-Natriuretic Peptide Total Protein Albumin Beta-Hydroxybutyrate Urine Color Yellow Urine Appearance Clear Urine pH 5.5 Ur Specific [facility] 1.025 Urine Protein >=1000 (4+) H Urine Glucose (UA) >=1000 H Urine Ketones Negative Urine Blood Negative Urine Nitrite Negative Ur Leukocyte Esterase Negative Urine RBC 0-2 Urine WBC 0-5 Ur Squamous Epith Cells 0-2 Urine Bacteria None Seen Hyaline Casts 0-2 COVID-19 (EFRA[facility]N) COVID-19 Clin Com 11/20/23 11/20/23 11/20/23 19:57 21:38 21:44 WBC RBC Hgb Hct MCV MCH MCHC RDW Plt Count MPV Immature Gran % (Auto) Neut % (Auto) Lymph % (Auto) [place] % (Auto) Eos % (Auto) Baso % (Auto) Lymph # (Auto) [place] # (Auto) Eos # (Auto) Baso # (Auto) Abs Immat Gran (auto) Absolute Neuts (auto) Absolute Nucleated RBC Nucleated RBC % (auto) VBG pH VBG pCO2 VBG pO2 VBG HCO3 VBG O2 Saturation VBG Base Excess Sodium Potassium Chloride Carbon Dioxide Anion Gap BUN Creatinine Estim Creat Clear Calc Estimated GFR POC Glucose 311 H 275 H Random Glucose Lactic Acid Calcium Total Bilirubin AST ALT Alkaline Phosphatase Ammonia 14 Troponin I High Sens B-Natriuretic Peptide Total Protein Albumin Beta-Hydroxybutyrate Urine Color Urine Appearance Urine pH Ur Specific [facility] Urine Protein Urine Glucose (UA) Urine Ketones Urine Blood Urine Nitrite Ur Leukocyte Esterase Urine RBC Urine WBC Ur Squamous Epith Cells Urine Bacteria Hyaline Casts COVID-19 ([facility]RA[facility]N) COVID-19 Clin Com 11/21/23 11/21/23 11/21/23 07:18 08:50 13:08 WBC RBC Hgb Hct MCV MCH MCHC RDW Plt Count MPV Immature Gran % (Auto) Neut % (Auto) Lymph % (Auto) [place] % (Auto) Eos % (Auto) Baso % (Auto) Lymph # (Auto) [place] # (Auto) Eos # (Auto) Baso # (Auto) Abs Immat Gran (auto) Absolute Neuts (auto) Absolute Nucleated RBC Nucleated RBC % (auto) VBG pH VBG pCO2 VBG pO2 VBG HCO3 VBG O2 Saturation VBG Base Excess Sodium Potassium Chloride Carbon Dioxide Anion Gap BUN Creatinine Estim Creat Clear Calc Estimated GFR POC Glucose 157 H 161 H Random Glucose Lactic Acid Calcium Total Bilirubin AST ALT Alkaline Phosphatase Ammonia Troponin I High Sens B-Natriuretic Peptide Total Protein Albumin Beta-Hydroxybutyrate Urine Color Urine Appearance Urine pH Ur Specific [facility] Urine Protein Urine Glucose (UA) Urine Ketones Urine Blood Urine Nitrite Ur Leukocyte Esterase Urine RBC Urine WBC Ur Squamous Epith Cells Urine Bacteria Hyaline Casts COVID-19 (EFRA[facility]N) Negative COVID-19 Clin Com See Note Imaging Radiology Impressions: ITS Impressions Head CT 11/20/23 22:15 IMPRESSION: 1. No evidence of acute intracranial hemorrhage or edematous territorial infarction. 2. Moderate underlying microangiopathy. 3. There is a degree of generalized cerebral volume loss with prominence of both the ventricles and sulcal spaces. However, there appears to be mildly disproportionate prominence of the ventricles. This may be due to disproportionate central volume loss; however, correlation with symptoms of potential superimposed normal pressure hydrocephalus is recommended. Mental Status Exam Mental Status Exam Narrative: Appearance: MO, wearing hospital gown, lying in bed, in NAD Behavior: limited by somnolence Psychomotor: retardation noted Speech: mostly clear, mumbles at times, spontaneous TP:no loose associations, but confusion TC: feeling tired Mood: tired AH/VH: no overt signs Delusions: no overt delusional content noted or reported insight/judgment: impaired x2. memory/cog: alert, not oriented to situation, place. Medications Allergies Allergies Allergy/AdvReac Type Severity Reaction Status Date / Time Unable to Assess Allergy Verified 11/20/23 16:18 Assessment & Plan Assessment & Plan (1) Encephalopathy: Status: Acute Code(s): G93.40 - Encephalopathy, unspecified Plan Mr. Marcano is a 63 year-old male who was brought via EMS due to increase confusions. He was recently admitted at [facility] for sepsis, metabolic encephalopathy, severe cystitis with bilateral ascending pyelitis and pyelonephritis E coli resistant to Zosyn therefore transitioned to your opinion in discharged with midline which was inserted on 11/09/2023 for ertapenem while at short-term rehab, anticipated last dose of antibiotics would be 11/20/2023. He continues to present as confused in terms of not being oriented to situation. Note that head CT shows disproprotionate prominence of the ventricles r/o of NPH and suggest to correlate clinically---> HE IS showing magnetic gait increasing suspicion of NPH. He does not seem to be medically clear. PLAN 1. recommend to consult neurology. Total time managing care of this patient today ____ minutes.
[2023-11-21 13:50] LABS: Alanine Aminotransferase 24 U/L (0-40); Alkaline Phosphatase 102 U/L (39-117); Anion Gap 13 (12-20); Aspartate Amino Transferase 22 U/L (5-37); Bilirubin Total 0.4 mg/dL (0.0-1.0); Blood Urea Nitrogen 45 mg/dL (9-16); Calcium 8.9 mg/dL (8.4-10.2); Carbon Dioxide 24 mmol/L (22-29); Chloride 109 mmol/L (96-108); Creatinine Clr Calc Pharmacy 35.6; Estimated Glomerular Filt Rate 20; Glucose Random 162 mg/dL (60-115); Potassium 4.4 mmol/L (3.3-5.1); Sodium 142 mmol/L (135-145); Total Protein 6.4 g/dL (6.5-8.0)
--- NOTE | 2023-11-21 15:04 | PHA.MEDREC ---
Pharmacy Consult ? Medication Reconciliation Pharmacy has completed the medication reconciliation, list provided from Jose Angel at [place]. IV ertapenem finished on 11/19, discussed with Keerthi Allred from case management and she confirmed with [facility] that end of therapy was 11/20/23.
--- NOTE | 2023-11-21 16:27 | MHC.EDTECH ---
This pct assumed care of Patient at 1500 ,Patient was incontinent of urine ,Patient was a max asst of 3 person for care ,Patient was given a late lunch ate 100 % of meal and drank 240 ml fluids ,Patient watching television ,Call pinto within Patient reach .
--- NOTE | 2023-11-21 18:13 | MHC.CM.ED ---
Addendum entered by Joslyn Sandoval 11/21/23 20:47: [facility] referrals updated with Psych consult and Internal Med H&P Addendum entered by Joslyn Sandoval 11/21/23 20:29: Pt placed to observation by Dr. Cummings for acute metabolic encephalopathy, YARELIS VS CKD and possible normal pressure hydrocephalis. CM notified sister/HCP Ginger via telephone. Reviewed AHUMADA with HCP. Original left at bedside. Copy to medical records. Pt awaiting bed assignment. Original Note: CM spoke with nurse at [facility] at Dr. Cummings's request. Pt did receive his last dose of Ertapenem 11/19 prior to going to his doctors appointment. Nurse tells CM that patient was more confused yesterday and was unable to stand at bedside. States his gait was poor prior to yesterday and he has fallen, but he was able to stand to the chair. Pt was not having hallucinations, but was more confused. States at baseline, patient does not follow directions well and has poor STM. Also told CM that patient was very thirsty and drank about 7 cups of water. POC BS was 380. This was an improvement, as his BS was running in the high 400's. CM sent a [place] Text to Dr. Cummings with above information.. Fly [place] also aware. Pt will be admitted with neurology consult per Dr. Cummings. CM will wait for admitting orders.
--- NOTE | 2023-11-21 18:18 | PM.IMHP ---
History of Present Illness Date of Service: 11/21/23 Attending physician on admission: Cris Cummings Chief Complaint: AMS, lethargy Pt is a 63-year-old male with a PMH significant for HTN, HLD, CKD 3, insulin-dependent diabetes type 2,?GERD, BUD on CPAP, and mood disorder who presents to the ED from nephrology office for evaluation of increasing confusion and lethargy. Pt is currently a resident of [facility] at [facility] [place]. Was initially admitted to [facility] on 11/02-11/06?and treated for sepsis, metabolic encephalopathy, and severe cystitis with bilateral ascending pyelitis and pyelonephritis. Was discharged with midline and on 2 weeks of ertapenem with last dose yesterday morning. Nursing staff at [facility] report patient has become more confused since discharge with gait change where he is unable to stand. Apparently at baseline needs a lot of redirection and encouragement to follow directions, but is not confused. Patient's HPC/sister reports patient has had recent falls, reportedly at least 4, in the past few days without any workup. Unclear if there have been any head strikes. Sister also notes patient has reported seeing bugs crawling on the ceiling which is something new for him. CT of head showed no acute intracranial pathology, but question of normal pressure hydrocephalus. Patient was initially placed in physician observation with PT/case management evaluation as patient's family requested he not be returned to [place] rehab. Psychology consult made for possible placement, but evaluation showed magnetic gait and increasing suspicion for NPH and did not feel patient was medically cleared to be on a psychiatric unit. Patient himself seems pleasantly confused. Believes he is at a ?house? in [place]. Is able to identify the year as 2023, and believes he is here because of infection in his groin and in his lower back. Also complains of chronic bilateral lower leg pain secondary to diabetic neuropathy. No other acute medical complaints. Denies fever, chills, nausea, vomiting, abdominal pain. No chest pain/pressure, palpitations. Denies shortness of breath. No headache, or acute vision changes. In the ED pt was hypertensive up to 176/91, vitals otherwise WNL. Labs were significant for BUN 45 with creatinine 3.11, andrandom glucose is high as 444, otherwise grossly unremarkable and at baseline. No leukocytosis. Stable H&H. No significant electrolyte abnormalities. UA negative for UTI. CT of head showed no evidence of acute intracranial hemorrhage or edematous territorial infarction, but showed moderate underlying microangiopathy and a degree of generalized cerebral volume loss with prominence of both ventricles and sulcal spaces, possibly representing normal pressure hydrocephalus. Pt was treated with insulin 10 units. Pt will be admitted to the hospital under observation for further evaluation of acute metabolic encephalopathy in the setting of possible normal pressure hydrocephalus. Review of Systems Review of Systems: Chronic bilateral lower extremity pain Otherwise has no acute or chronic medical complaints [facility] Medical History (Updated 11/22/23 @ 09:31 by Balbir Colindres MD) GERD (gastroesophageal reflux disease) Insulin dependent type 2 diabetes mellitus HLD (hyperlipidemia) HTN (hypertension) CKD stage 3b, GFR 30-44 ml/min Social History Household Members: None Housing: Apartment Do you presently have visiting nurse or other home services: No Patient Tobacco Use Status: Former Tobacco user Smoked in Last 30 Days: No Use of substances other than those prescribed or required for medical reasons: No Do you feel safe in your current relationship?: No Current Relationship Advance Directives: Yes Advance Directives on File: Yes Advance Directives Date on File: 11/21/23 Do you have thoughts of harming others: None Do you have a plan to hurt others: No Plan Recently lost weight without trying: No Nutrition Risks: Dental problems Poor oral hygiene: Yes Meds Allergies Allergy/AdvReac Type Severity Reaction Status Date / Time Unable to Assess Allergy Verified 11/20/23 16:18 Home Medications ?Medication ?Instructions ?Recorded ?Confirmed ?Last Taken ?Type acetaminophen 500 mg tablet 1,000 mg PO Q4H PRN Fever Or Pain 11/21/23 11/21/23 Unknown History amlodipine 10 mg tablet 10 mg PO DAILY 11/21/23 11/21/23 Unknown History aspirin 81 mg tablet,delayed 162 mg PO BEDTIME 11/21/23 11/21/23 Unknown History release atorvastatin 40 mg tablet 40 mg PO BEDTIME 11/21/23 11/21/23 Unknown History bupropion HCl 450 mg 24 hr tablet, 450 mg PO DAILY 11/21/23 11/21/23 Unknown History extended release famotidine 20 mg tablet 20 mg PO BID 11/21/23 11/21/23 Unknown History hydralazine 25 mg tablet 75 mg PO TID 11/21/23 11/21/23 Unknown History insulin aspart U-100 100 unit/mL 1 sliding scale dose subcut 11/21/23 11/21/23 Unknown History (3 mL) subcutaneous pen (Novolog USEASDIRECTD FlexPen U-100 Insulin aspart) insulin glargine 100 unit/mL (3 50 unit subcut BEDTIME 11/21/23 11/21/23 Unknown History mL) subcutaneous pen (Lantus Solostar U-100 Insulin) melatonin 10 mg tablet 10 mg PO BEDTIME 11/21/23 11/21/23 Unknown History pantoprazole 20 mg tablet,delayed 20 mg PO DAILY 11/21/23 11/21/23 Unknown History release sertraline 50 mg tablet 50 mg PO DAILY 11/21/23 11/21/23 Unknown History sodium phosphates 19 gram-7 118 ml [place] DAILY PRN Constipation 11/21/23 11/21/23 Unknown History gram/118 mL enema (Fleet Enema) tirzepatide 7.5 mg/0.5 mL 7.5 mg subcut QWEEK 11/21/23 11/21/23 Unknown History subcutaneous pen injector (Mounjaro) trazodone 50 mg tablet 25 mg PO BEDTIME 11/21/23 11/21/23 Unknown History Physical Exam Vital Signs and Narrative: Vital Signs: Last Vital Signs Temp 97.0 F 11/21/23 16:00 Pulse 64 11/21/23 16:00 Resp 16 11/21/23 16:00 BP 161/91 H 11/21/23 16:00 Pulse Ox 96 11/21/23 16:00 O2 Del Method Room Air 11/21/23 16:00 BMI result Body Mass Index 47.3 Constitutional: Alert, pleasantly confused, in no acute distress. Mental Status: Oriented to person, time, and mostly to situation, but not to place. Eyes: Pupils are equal, round, and reactive to light. Ear, Nose, and Throat: Oropharynx clear, mucous membranes moist. Ears and nose without deformities. Trachea midline. Respiratory: Clear to auscultation bilaterally. No wheezing, rales, or rhonchi. Cardiovascular: S1, S2 regular. No murmurs, rubs, or gallops. Gastrointestinal: Abdomen soft, non-tender, non-distended, obese. Normal bowel sounds. Neurologic: Cranial nerves II-XII are grossly intact bilaterally. No focal neurological deficits. Moves all extremities spontaneously. Skin: Warm, dry. Extremities: Chronic venous stasis bilaterally. Psychiatric: Calm, cooperative. Results Labs 11/20/23 17:26 11/21/23 13:19 Labs: Laboratory Results - last 24 hr 11/20/23 11/20/23 11/20/23 18:10 19:29 19:57 Anion Gap Estim Creat Clear Calc Estimated GFR POC Glucose 373 H* 311 H Random Glucose Calcium Total Bilirubin AST ALT Alkaline Phosphatase Ammonia Total Protein Albumin Urine Color Yellow Urine Appearance Clear Urine pH 5.5 Ur Specific [place] 1.025 Urine Protein >=1000 (4+) H Urine Glucose (UA) >=1000 H Urine Ketones Negative Urine Blood Negative Urine Nitrite Negative Ur Leukocyte Esterase Negative Urine RBC 0-2 Urine WBC 0-5 Ur Squamous Epith Cells 0-2 Urine Bacteria None Seen Hyaline Casts 0-2 COVID-19 (EFRAÍN) COVID-19 [employer] Com 11/20/23 11/20/23 11/21/23 21:38 21:44 07:18 Anion Gap Estim Creat Clear Calc Estimated GFR POC Glucose 275 H 157 H Random Glucose Calcium Total Bilirubin AST ALT Alkaline Phosphatase Ammonia 14 Total Protein Albumin Urine Color Urine Appearance Urine pH Ur Specific [place] Urine Protein Urine Glucose (UA) Urine Ketones Urine Blood Urine Nitrite Ur Leukocyte Esterase Urine RBC Urine WBC Ur Squamous Epith Cells Urine Bacteria Hyaline Casts COVID-19 (EFRAÍN) COVID-19 Clin Com 11/21/23 11/21/23 11/21/23 08:50 13:08 13:19 Anion Gap 13 Estim Creat Clear Calc 35.6 Estimated GFR 20 POC Glucose 161 H Random Glucose 162 H Calcium 8.9 Total Bilirubin 0.4 AST 22 ALT 24 Alkaline Phosphatase 102 Ammonia Total Protein 6.4 L Albumin 3.0 L Urine Color Urine Appearance Urine pH Ur Specific [place] Urine Protein Urine Glucose (UA) Urine Ketones Urine Blood Urine Nitrite Ur Leukocyte Esterase Urine RBC Urine WBC Ur Squamous Epith Cells Urine Bacteria Hyaline Casts COVID-19 (EFRAÍN) Negative COVID-19 Clin Com See Note Imaging Radiologist's Impressions: Impressions Head CT 11/20/23 22:15 IMPRESSION: 1. No evidence of acute intracranial hemorrhage or edematous territorial infarction. 2. Moderate underlying microangiopathy. 3. There is a degree of generalized cerebral volume loss with prominence of both the ventricles and sulcal spaces. However, there appears to be mildly disproportionate prominence of the ventricles. This may be due to disproportionate central volume loss; however, correlation with symptoms of potential superimposed normal pressure hydrocephalus is recommended. Assessment and Plan (1) Encephalopathy: Status: Acute Plan Pt is a 63-year-old male with a PMH significant for HTN, HLD, CKD 3, insulin-dependent diabetes type 2,?GERD, BUD on CPAP, and mood disorder who presents to the ED from [facility] at [facility] for evaluation of increasing confusion and lethargy. Pt will be admitted to the hospital under observation for further evaluation of acute metabolic encephalopathy in the setting of possible normal pressure hydrocephalus. Acute metabolic encephalopathy SNF and family report increasing confusion since discharge from [facility] on 11/06 Reportedly hallucinating in ED, seeing bugs crawling on the ceiling CT of head negative for acute pathology, but question of normal pressure hydrocephalus Neurology consult Monitor mentation ?YARELIS vs CKD Creatinine 3.11, stable, in line with labs at [facility] Follows with Dr. Sparks in nephrology Hx of UTI Was seen and evaluated at [facility] on11/02-11/06 for acute encephalopathy in setting of UTI with pyelonephritis Completed 2 week course of ertapenem yesterday UA today negative for UTI No indication to resume antibiotics at this time HTN Continue amlodipine, hydralazine HLD Continue atorvastatin Insulin-dependent diabetes type [address] on SSI, diabetic diet Continue home Lantus GERD Continue with famotidine, ppi Mood disorder Continue bupropion, sertraline Obesity class III Encourage weight loss DNR/DNI, verfied with [facility] Attending:?Dr. Cummings DVT Prophylaxis: Lovenox Pt will be admitted to the hospital under observation for further evaluation of acute encephalopathy possibly secondary to normal pressure hydrocephalus. Quality Stroke Does the patient have a stroke diagnosis?: No VTE Prior VTE?: No VTE Risk Level:: Medical - moderate - high VTE Device Contraindication: Treatment Not Indicated VTE Drug Contraindication: N/A - Med Ordered
--- NOTE | 2023-11-21 18:29 | PC.NURSE ---
pt taking off susy in room. staff assist to cloth pt. tray given, pt eats independently. pt pleasantly confused. pt sts it's 1983 and that gabriella Michaelgarry is president. pt transferred into hospital bed for comfort and safety. 1:[address] for pt safety[address] call pinto within reach. plan of care ongoing.
--- NOTE | 2023-11-21 18:36 | MHC.EDTECH ---
Patient still very confused ,kept on trying to climb out of bed ,Patient was moved into a hospital ,vitals taken ,blood sugar check and Patient was set up for dinner .
[2023-11-21 19:03] LABS: Glucose, Whole Blood 207 mg/dL (60-115)
[2023-11-21] MEDS: buPROPion HCl XL 150 MG TAB.ER.24H 450 MG PO (19:19)
[2023-11-21] MEDS: Sertraline HCL 50 MG TABLET PO (19:19)
[2023-11-21] MEDS: Enoxaparin Sodium 40 MG/0.4 ML SYRINGE SUBCUT (19:19)
[2023-11-21] MEDS: amLODIPine Besylate 10 MG TABLET PO (19:19)
--- NOTE | 2023-11-21 19:21 | MHC.EDTECH ---
Patient ate 100% of meal and drank 600ml fluids .
--- NOTE | 2023-11-21 19:23 | PC.NURSE ---
assumed care of pt at 1900. medicated per oct. pt reports no pain, offers no current complaints. in hospital bed. skin p/w/d, call pinto within reach. plan of care ongoing
[2023-11-21 20:47] LABS: Glucose, Whole Blood 266 mg/dL (60-115)
[2023-11-21] MEDS: Famotidine 20 MG TABLET PO (20:55)
[2023-11-21] MEDS: hydrALAZINE HCl 25 MG TABLET 75 MG PO (20:55)
[2023-11-21] MEDS: Insulin Lispro 100 UNIT/ML 3 ML VIAL SUBCUT (20:55)
[2023-11-21] MEDS: Aspirin Enteric Coated 81 MG TABLET.DR 162 MG PO (20:55)
[2023-11-21] MEDS: Atorvastatin Calcium 40 MG TABLET PO (20:55)
[2023-11-21] MEDS: Insulin Glargine,Hum.rec.anlog 100 UNIT/ML 10 ML VIAL 50 UNIT SUBCUT (20:56)
--- NOTE | 2023-11-21 22:35 | MHC.EDTECH ---
2200 rounding done ,vitals taken ,Pt awake watching television ,Patient is dry and was reposition and boosted up in bed ,Call pinto within Pt reach .
[2023-11-22 02:00] VITALS: BP 130/61; PULSE 70; RESP 16; TEMP 36.8; O2SAT 96
--- NOTE | 2023-11-22 02:05 | MHC.EDTECH ---
0200 rounding done ,vitals taken ,Patient Voided 700 in urinal ,was also incontinent of urine Patient was a max asst of 3 person for care, bedding change ,clean gown given and warm blanket ,Patient drank 360 ml fluids at this time ,Call pinto in Place and bed alarm on .
--- NOTE | 2023-11-22 02:24 | PC.NURSE ---
pt asleep comfortably respirations even and unlabored, in hospital bed, no apparent distress. call pinto within reach plan of care ongoing
[2023-11-22 06:18] VITALS: BP 156/72; PULSE 71; RESP 15; TEMP 36.4; O2SAT 95
--- NOTE | 2023-11-22 06:27 | MHC.EDTECH ---
0600 ROUNDING DONE ,VITALS TAKEN ,PATIENT CLEAN AND DRY ,AND WAS REPOSITION IN BED ,CALL WHITESIDE WITHIN PATIENT REACH .
[2023-11-22] MEDS: Omeprazole 20 MG CAPSULE.DR PO (06:38)
[2023-11-22 07:14] LABS: Glucose, Whole Blood 188 mg/dL (60-115)
[2023-11-22 07:23] VITALS: BP 134/90; PULSE 74; RESP 18; TEMP 36.8; O2SAT 96
[2023-11-22] MEDS: buPROPion HCl XL 150 MG TAB.ER.24H 450 MG PO (07:24)
[2023-11-22] MEDS: hydrALAZINE HCl 25 MG TABLET 75 MG PO ×3 (07:24→20:45)
[2023-11-22] MEDS: Famotidine 20 MG TABLET PO ×2 (07:25→20:46)
[2023-11-22] MEDS: Insulin Lispro 100 UNIT/ML 3 ML VIAL SUBCUT ×4 (07:25→20:43)
[2023-11-22] MEDS: Sertraline HCL 50 MG TABLET PO (07:25)
[2023-11-22] MEDS: amLODIPine Besylate 10 MG TABLET PO (07:25)
[2023-11-22] MEDS: 0.9 % Sodium Chloride Flush 3 ML SYRINGE IVFLUSH ×3 (07:28→20:46)
--- NOTE | 2023-11-22 07:33 | PC.NURSE ---
patient awake with even and unlabored respirations. medicated per the MAR, offering no complaints at this time. eating breakfast and watching tv with call pinto within reach
[2023-11-22 08:49] VITALS: BP 150/66; PULSE 80; RESP 17; TEMP 36.2; O2SAT 96
[2023-11-22 09:06] VITALS: BMI 47.3
--- NOTE | 2023-11-22 09:26 | P.CNNE_ITS ---
History of Present Illness Data of Consult Service Date: 11/22/23 Primary Care Provider: Jordan Willis MD HPI Reason for consult: Change in mental status 63 years old man with significant obesity, uncontrolled diabetes, significant renal disease, and recent admission in [facility] with significant infection and then discharged to rehab place. 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 He said that usually he was able to walk but during last couple of weeks he was having difficulty. There was no history of recent fall or any complain of any significant headache or back pain or change in his bowel bladder pattern. He said that his memory was not that great. A head CT was done that suggested possible normal-pressure hydrocephalus and this consultation was requested. Review of Systems 2 Review of Systems: Change in mental status and difficulty walking during last few weeks PMFSH Past Medical History Medical History (Updated 11/22/23 @ 09:31 by Balbir Colindres MD) GERD (gastroesophageal reflux disease) Insulin dependent type 2 diabetes mellitus HLD (hyperlipidemia) HTN (hypertension) CKD stage 3b, GFR 30-44 ml/min Social History Social History Household Members: None Housing: Apartment Do you presently have visiting nurse or other home services: No Patient Tobacco Use Status: Former Tobacco user Smoked in Last 30 Days: No Use of substances other than those prescribed or required for medical reasons: No Do you feel safe in your current relationship?: No Current Relationship Advance Directives: Yes Advance Directives on File: Yes Advance Directives Date on File: 11/21/23 Do you have thoughts of harming others: None Do you have a plan to hurt others: No Plan Recently lost weight without trying: No Nutrition Risks: Dental problems Poor oral hygiene: Yes Meds Allergies Allergy/AdvReac Type Severity Reaction Status Date / Time Unable to Assess Allergy Verified 11/20/23 16:18 Active Medications: Current Medications Acetaminophen (Acetaminophen 325 Mg Tablet) 975 mg PO Q4H PRN PRN Reason: Fever Or Pain Amlodipine Besylate (Amlodipine Besylate 10 Mg Tablet) 10 mg PO DAILY KATERINA; Protocol Last Admin: 11/22/23 07:25 Dose: 10 mg Aspirin (Aspirin Enteric Coated 81 Mg Tablet.) 162 mg PO BEDTIME [facility] Last Admin: 11/21/23 20:55 Dose: 162 mg Atorvastatin Calcium (Atorvastatin Calcium 40 Mg Tablet) 40 mg PO BEDTIME [facility] Last Admin: 11/21/23 20:55 Dose: 40 mg Bupropion HCl (Bupropion Hcl Xl 150 Mg Tab.Er.24h) 450 mg PO DAILY [facility] Last Admin: 11/22/23 07:24 Dose: 450 mg Dextrose (Dextrose 50 % 25 Gm/50 Ml Syringe) 25 gm IVPUSH Q15M PRN; Protocol PRN Reason: per Hypoglycemia Standing Ord. Docusate Sodium (Docusate Sodium 100 Mg Capsule) 100 mg PO DAILY PRN PRN Reason: Constipation Enoxaparin Sodium (Enoxaparin Sodium 40 Mg/0.4 Ml Syringe) 40 mg SUBCUT Q24H [facility] Last Admin: 11/21/23 19:19 Dose: 40 mg Famotidine (Famotidine 20 Mg Tablet) 20 mg PO BID [facility] Last Admin: 11/22/23 07:25 Dose: 20 mg Glucose (Glucose Gel 15 Gm Gel..Gram.) 15 gm PO Q15M PRN; Protocol PRN Reason: per Hypoglycemia Standing Ord. Hydralazine HCl (Hydralazine Hcl 25 Mg Tablet) 75 mg PO TID [facility]; Protocol Last Admin: 11/22/23 07:24 Dose: 75 mg Insulin Glargine (Insulin Glargine,Hum.Rec.Anlog 100 Unit/Ml 10 Ml Vial) 50 unit SUBCUT BEDTIME [facility] Last Admin: 11/21/23 20:56 Dose: 50 unit Insulin Human Lispro (Insulin Lispro 100 Unit/Ml 3 Ml Vial) 0 unit SUBCUT QIDACHS [facility]; Protocol Last Admin: 11/22/23 07:25 Dose: 2 unit Melatonin (Melatonin 3 Mg Tablet) 9 mg PO BEDTIME [facility] Last Admin: 11/21/23 21:29 Dose: Not Given Omeprazole (Omeprazole 20 Mg Capsule.) 20 mg PO DAILY@0630 [facility] Last Admin: 11/22/23 06:38 Dose: 20 mg Sertraline HCl (Sertraline Hcl 50 Mg Tablet) 50 mg PO DAILY [facility] Last Admin: 11/22/23 07:25 Dose: 50 mg Sodium Biphosphate/Sodium Phosphate (Sodium Phosphate,[place]-Dibasic 133 Ml Enema) 118 ml [place] DAILY PRN PRN Reason: Constipation Sodium Chloride (0.9 % Sodium Chloride Flush 3 Ml Syringe) 3 ml IVFLUSH QSHIFT [facility] Last Admin: 11/22/23 07:28 Dose: 3 ml Trazodone HCl (Trazodone Hcl 25 Mg Halftab) 25 mg PO BEDTIME [facility] Last Admin: 11/21/23 21:29 Dose: Not Given Home Medications ?Medication ?Instructions ?Recorded ?Confirmed ?Last Taken ?Type acetaminophen 500 mg tablet 1,000 mg PO Q4H PRN Fever Or Pain 11/21/23 11/21/23 Unknown History amlodipine 10 mg tablet 10 mg PO DAILY 11/21/23 11/21/23 Unknown History aspirin 81 mg tablet,delayed 162 mg PO BEDTIME 11/21/23 11/21/23 Unknown History release atorvastatin 40 mg tablet 40 mg PO BEDTIME 11/21/23 11/21/23 Unknown History bupropion HCl 450 mg 24 hr tablet, 450 mg PO DAILY 11/21/23 11/21/23 Unknown History extended release famotidine 20 mg tablet 20 mg PO BID 11/21/23 11/21/23 Unknown History hydralazine 25 mg tablet 75 mg PO TID 11/21/23 11/21/23 Unknown History insulin aspart U-100 100 unit/mL 1 sliding scale dose subcut 11/21/23 11/21/23 Unknown History (3 mL) subcutaneous pen (Novolog USEASDIRECTD FlexPen U-100 Insulin aspart) insulin glargine 100 unit/mL (3 50 unit subcut BEDTIME 11/21/23 11/21/23 Unknown History mL) subcutaneous pen (Lantus Solostar U-100 Insulin) melatonin 10 mg tablet 10 mg PO BEDTIME 11/21/23 11/21/23 Unknown History pantoprazole 20 mg tablet,delayed 20 mg PO DAILY 11/21/23 11/21/23 Unknown History release sertraline 50 mg tablet 50 mg PO DAILY 11/21/23 11/21/23 Unknown History sodium phosphates 19 gram-7 118 ml [place] DAILY PRN Constipation 11/21/23 11/21/23 Unknown History gram/118 mL enema (Fleet Enema) tirzepatide 7.5 mg/0.5 mL 7.5 mg subcut QWEEK 11/21/23 11/21/23 Unknown History subcutaneous pen injector (Mounjaro) trazodone 50 mg tablet 25 mg PO BEDTIME 11/21/23 11/21/23 Unknown History Physical Exam 2 Vital Signs: Vital Signs: Last Vital Signs Temp 97.2 F 11/22/23 08:49 Pulse 80 11/22/23 08:49 Resp 17 11/22/23 08:49 BP 150/66 H 11/22/23 08:49 Pulse Ox 96 11/22/23 08:49 O2 Del Method Room Air 11/22/23 08:49 BMI result Body Mass Index 47.3 Neuro: Other: He is alert and awake with normal spontaneity of speech fluency comprehension and affect. He knows where he is in follows commands. Face is symmetrical. Visual tian are full. Facial expressions are full. There is no bradykinesia. Deep tendon reflexes are trace to 1+ with flexor plantars. Significant scaly rashes noted on his legs. He significantly obese limiting examination. I could not get him to get up and walk. Speech is normal. Results Labs 11/20/23 17:26 11/21/23 13:19 Labs: BMP 11/21/23 13:19 Sodium 142 Potassium 4.4 Chloride 109 H Carbon Dioxide 24 BUN 45 H Creatinine 3.11 H Calcium 8.9 Liver Function 11/21/23 Range/Units 13:19 Total Bilirubin 0.4 (0.0-1.0) mg/dL AST 22 (5-37) U/L ALT 24 (0-40) U/L Alkaline Phosphatase 102 (39-117) U/L Albumin 3.0 L (3.5-5.0) g/dL His head CT revealed mild chronic microvascular ischemic changes. There is mild cerebellar atrophy in mild cerebral atrophy with central and cortical feature but ventricles are slightly larger than the amount of atrophy. Microbiology Microbiology Results: Microbiology 11/20/23 17:51 Blood - Venous Blood Culture - Preliminary No growth after 24 hours. 11/20/23 17:28 Blood - Venous Blood Culture - Preliminary No growth after 24 hours. Assessment and Plan (1) Multifactorial gait disorder: Status: Acute 63 years old man with significant obesity, uncontrolled diabetes and likely related diabetic neuropathy, significant renal disease also impacting his peripheral nerves and microvasculature, uncontrolled blood pressure, recent bout of significant infection, mild cerebellar and cerebral atrophy with slightly out of proportion ventriculomegaly, and microvascular ischemic changes. Overall clinical picture is not suggestive of normal-pressure hydrocephalus being the main issue here. Outpatient EMG nerve conduction study of legs can be ranged to review type and severity of neuropathy. A noncontrast MRI of brain can help rule out any central cause of change in mental status such as ischemic stroke. As far as the issue of normal-pressure hydrocephalus is concerned, it can be followed up as an outpatient specially when his other issues are better controlled. Procedures Date of Service Date of Service: 11/22/23
[2023-11-22 11:37] LABS: Glucose, Whole Blood 328 mg/dL (60-115)
--- NOTE | 2023-11-22 13:55 | PC.NURSE ---
[facility] in [place], to fax info for PICC placed by [facility].
--- NOTE | 2023-11-22 13:58 | HO.PM.IMPN ---
Subjective Subjective Date of Service: 11/23/23 Interval History: encephalopathy ,generlaised weak Review of Systems menatal status somewhat improving no fevers Physical Exam Vital Signs: Vital Signs: Last Vital Signs Temp 97.2 F 11/22/23 08:49 Pulse 80 11/22/23 08:49 Resp 17 11/22/23 08:49 BP 150/66 H 11/22/23 08:49 Pulse Ox 96 11/22/23 08:49 O2 Del Method Room Air 11/22/23 08:49 BMI result Body Mass Index 47.3 Appearance: Alert.? Oriented X2.? more awake.. cvs: rrr, [id number] , no murmur res: clear to auscultation ,no rhonchii or wheezing abd: no rebound or guarding ,nt, bs present. ext pulses present , no cyanosis . neuro: moves all ext Objective Data Active Medications Acetaminophen (Acetaminophen 325 Mg Tablet) 975 mg PO Q4H PRN PRN Reason: Fever Or Pain Amlodipine Besylate (Amlodipine Besylate 10 Mg Tablet) 10 mg PO DAILY [facility]; Protocol Last Admin: 11/22/23 07:25 Dose: 10 mg Documented By: POONAM Aspirin (Aspirin Enteric Coated 81 Mg Tablet.) 162 mg PO BEDTIME [facility] Last Admin: 11/21/23 20:55 Dose: 162 mg Documented By: GERARDO Atorvastatin Calcium (Atorvastatin Calcium 40 Mg Tablet) 40 mg PO BEDTIME [facility] Last Admin: 11/21/23 20:55 Dose: 40 mg Documented By: GERARDO Bupropion HCl (Bupropion Hcl Xl 150 Mg Tab.Er.24h) 450 mg PO DAILY [facility] Last Admin: 11/22/23 07:24 Dose: 450 mg Documented By: POONAM Dextrose (Dextrose 50 % 25 Gm/50 Ml Syringe) 25 gm IVPUSH Q15M PRN; Protocol PRN Reason: per Hypoglycemia Standing Ord. Docusate Sodium (Docusate Sodium 100 Mg Capsule) 100 mg PO DAILY PRN PRN Reason: Constipation Enoxaparin Sodium (Enoxaparin Sodium 40 Mg/0.4 Ml Syringe) 40 mg SUBCUT Q24H [facility] Last Admin: 11/21/23 19:19 Dose: 40 mg Documented By: GERARDO Famotidine (Famotidine 20 Mg Tablet) 20 mg PO BID [facility] Last Admin: 11/22/23 07:25 Dose: 20 mg Documented By: POONAM Glucose (Glucose Gel 15 Gm Gel..Gram.) 15 gm PO Q15M PRN; Protocol PRN Reason: per Hypoglycemia Standing Ord. Hydralazine HCl (Hydralazine Hcl 25 Mg Tablet) 75 mg PO TID [facility]; Protocol Last Admin: 11/22/23 07:24 Dose: 75 mg Documented By: POONAM Insulin Glargine (Insulin Glargine,Hum.Rec.Anlog 100 Unit/Ml 10 Ml Vial) 50 unit SUBCUT BEDTIME [facility] Last Admin: 11/21/23 20:56 Dose: 50 unit Documented By: GERARDO Insulin Human Lispro (Insulin Lispro 100 Unit/Ml 3 Ml Vial) 0 unit SUBCUT QIDACHS [facility]; Protocol Last Admin: 11/22/23 12:04 Dose: 8 unit Documented By: DYLAN Melatonin (Melatonin 3 Mg Tablet) 9 mg PO BEDTIME [facility] Last Admin: 11/21/23 21:29 Dose: Not Given Documented By: GERARDO Non-Admin Reason: Patient Asleep Omeprazole (Omeprazole 20 Mg Capsule.) 20 mg PO DAILY@0630 [facility] Last Admin: 11/22/23 06:38 Dose: 20 mg Documented By: GERARDO Sertraline HCl (Sertraline Hcl 50 Mg Tablet) 50 mg PO DAILY [facility] Last Admin: 11/22/23 07:25 Dose: 50 mg Documented By: POONAM Sodium Biphosphate/Sodium Phosphate (Sodium Phosphate,Juana Diaz-Dibasic 133 Ml Enema) 118 ml KS DAILY PRN PRN Reason: Constipation Sodium Chloride (0.9 % Sodium Chloride Flush 3 Ml Syringe) 3 ml IVFLUSH QSHIFT [facility] Last Admin: 11/22/23 07:28 Dose: 3 ml Documented By: POONAM Trazodone HCl (Trazodone Hcl 25 Mg Halftab) 25 mg PO BEDTIME [facility] Last Admin: 11/21/23 21:29 Dose: Not Given Documented By: GERARDO Non-Admin Reason: Patient Asleep Labs 11/20/23 17:26 11/21/23 13:19 Labs: Laboratory Results - last 24 hr 11/21/23 11/21/23 11/22/23 18:20 20:43 07:10 POC Glucose 207 H 266 H 188 H 11/22/23 11:32 POC Glucose 328 H Microbiology Microbiology Results: Microbiology 11/20/23 17:51 Blood Culture - Preliminary Blood - Venous No growth after 24 hours. 11/20/23 17:28 Blood Culture - Preliminary Blood - Venous No growth after 24 hours. Assessment and Plan (1) Encephalopathy: Status: Acute (2) Hyperglycemia: Status: Acute Plan 63-year-old male with a PMH significant for HTN, HLD, CKD 3, insulin-dependent diabetes type 2,?GERD, BUD on CPAP, and mood disorder who presents to the ED from [facility] for evaluation of increasing confusion and lethargy. Pt will be admitted to the hospital under observation for further evaluation of acute metabolic encephalopathy in the setting of possible normal pressure hydrocephalus. Acute encephalopathy-unclear etiology confusion somewhat improving,denies hallucinating . workup: electrolytes ,ua ,cxr -seems fine no fever, blood culture prelim neg@24hrs , no hypoxia ,vbg is also fine CT of head negative for acute pathology, but question of normal pressure hydrocephalus will add urine drug screen,respiratory viral panel. Neurology consult noted -added MRI. ? nph-outpatient [facility] outpatient . Monitor mentation guerita CKD 3: recieved iv hydration in ed. Creatinine 3.11, stable, in line with labs at [facility] Dr. Sparks will follow up. Hx of UTI Was seen and evaluated at [facility] on11/02-11/06 for acute encephalopathy in setting of UTI with pyelonephritis Completed 2 week course of ertapenem yesterday UA today negative for UTI No indication to resume antibiotics at this time, will try removal of midline. HTN-Continue amlodipine, hydralazine HLD-Continue atorvastatin Insulin-dependent diabetes type 2 with hyperglycemia: Place on SSI, diabetic diet Continue home Lantus,adjusted sliding scale. GERD Continue with famotidine, ppi Mood disorder Continue bupropion, sertraline Obesity class III Encourage weight loss,cut down calories. As per family sister -patient is full code, will change code status to full code. DVT Prophylaxis: Lovenox ongoing hospitlisation need : for further evaluation of acute encephalopathy unclear etiology- need workup for encephalopathy, pt eval , menatl status monitering ,as wellas nephrology input for kel vs ckd -and further workup-renal function/electrolytes monitering, dm with hyperglycemia -need fs monitering/insulin regimen adjustement, as well as need Pt input for possible rehab placement. Quality Stroke Does the patient have a stroke diagnosis?: No VTE Prior VTE?: No VTE Risk Level:: Medical - moderate - high VTE Device Contraindication: Treatment Not Indicated VTE Drug Contraindication: N/A - Med Ordered
--- NOTE | 2023-11-22 15:05 | PC.NURSE ---
Clarification. No PICC, Midline placed by [employer], paper in chart. Was due to come out while patient was at [facility], Will pull Midline today. notified.
[2023-11-22 15:25] VITALS: BP 144/77; PULSE 76; RESP 20; TEMP 36.8; O2SAT 95
[2023-11-22 16:07] LABS: Glucose, Whole Blood 333 mg/dL (60-115)
--- NOTE | 2023-11-22 16:18 | MHC.CM.PN ---
HORACE MET WITH SISTER FOR SNF CHOICES. SISTER HARRISON STATES SHE HAS A COPY OF THE [facility] THAT IS MORE RECENT THAN THE ONE THIS HOSPITAL HAS ON FILE. THE ONE SHE HAS STATES THE PT IS FULL CODE. SISTER WILL BRING COPY IN. MD/RN UPDATED.
[2023-11-22] MEDS: Enoxaparin Sodium 40 MG/0.4 ML SYRINGE SUBCUT (18:24)
[2023-11-22 20:00] VITALS: BP 149/61; PULSE 78; RESP 18; TEMP 36.3; O2SAT 94
[2023-11-22 20:21] LABS: Glucose, Whole Blood 239 mg/dL (60-115)
[2023-11-22] MEDS: Insulin Glargine,Hum.rec.anlog 100 UNIT/ML 10 ML VIAL 50 UNIT SUBCUT (20:44)
[2023-11-22] MEDS: Melatonin 3 MG TABLET 9 MG PO (20:45)
[2023-11-22] MEDS: Aspirin Enteric Coated 81 MG TABLET.DR 162 MG PO (20:45)
[2023-11-22] MEDS: traZODone HCL 25 MG HALFTAB PO (20:46)
[2023-11-22] MEDS: Atorvastatin Calcium 40 MG TABLET PO (20:46)
[2023-11-23 00:05] LABS: Amphetamine Screen Urine Not Detected (Not Detect); Barbiturates, Urine Not Detected (Not Detect); Benzodiazepines Screen Urine Not Detected (Not Detect); Cannabinoid Screen Urine Not Detected (Not Detect); Cocaine Screen Urine Not Detected (Not Detect); Fentanyl, urine Not Detected (Not Detect); Opiate Screen Urine Not Detected (Not Detect); Phencyclidine Screen Urine Not Detected (Not Detect)
[2023-11-23 03:18] VITALS: BP 159/79; PULSE 70; RESP 18; TEMP 36.1; O2SAT 96
[2023-11-23 07:17] VITALS: BP 157/79; PULSE 70; RESP 20; TEMP 36.9; O2SAT 95
[2023-11-23 07:24] LABS: Glucose, Whole Blood 141 mg/dL (60-115)
[2023-11-23] MEDS: Omeprazole 20 MG CAPSULE.DR PO (07:53)
[2023-11-23] MEDS: 0.9 % Sodium Chloride Flush 3 ML SYRINGE IVFLUSH ×2 (07:53→15:22)
[2023-11-23] MEDS: Famotidine 20 MG TABLET PO (07:54)
[2023-11-23] MEDS: buPROPion HCl XL 150 MG TAB.ER.24H 450 MG PO (07:54)
[2023-11-23] MEDS: Sertraline HCL 50 MG TABLET PO (07:54)
[2023-11-23] MEDS: amLODIPine Besylate 10 MG TABLET PO (07:54)
[2023-11-23] MEDS: hydrALAZINE HCl 25 MG TABLET 75 MG PO ×2 (07:54→15:21)
[2023-11-23 11:28] LABS: Glucose, Whole Blood 233 mg/dL (60-115)
[2023-11-23 11:35] LABS: Adenovirus PCR Not Detected (Not Detect.); Bordetella parapertussis PCR Not Detected (Not Detect.); Bordetella pertussis PCR Not Detected (Not Detect.); Chlamydia pneumoniae PCR Not Detected (Not Detect.); Coronavirus 229E PCR Not Detected (Not Detect.); Coronavirus HKU1 PCR Not Detected (Not Detect.); Coronavirus NL63 PCR Not Detected (Not Detect.); Coronavirus OC43 PCR Not Detected (Not Detect.); Human metapneumovirus PCR Not Detected (Not Detect.); Influenza A PCR Not Detected (Not Detect.); Influenza B PCR Not Detected (Not Detect.); Mycoplasma pneumoniae PCR Not Detected (Not Detect.); Parainfluenza 1 PCR Not Detected (Not Detect.); Parainfluenza 2 PCR Not Detected (Not Detect.); Parainfluenza 3 PCR Not Detected (Not Detect.); Parainfluenza 4 PCR Not Detected (Not Detect.); RSV PCR Not Detected (Not Detect.); Rhino/Enterovirus PCR Not Detected (Not Detect.); SARS-CoV-2 PCR Not Detected (Not Detect.)
[2023-11-23] MEDS: Insulin Lispro 100 UNIT/ML 3 ML VIAL SUBCUT (11:38)
--- NOTE | 2023-11-23 12:01 | MHC.CM.PN ---
Addendum entered by Deepa Betancourt 11/23/23 14:50: INSURANCE AUTH HAS BEEN OBTAINED BY [employer], WILL TRANSFER VIA S AT 4 PM. SISTER/HCP HARRISON UPDATED ON PLAN. Original Note: DP: PT HAS BEEN MEDICALLY CLEARED FOR DC TO [facility]. [facility] FAMILY'S FIRST CHOICE AND THEY HAVE OFFERED A BED AND WILL SEEK INSURANCE AUTH FOR ADMISSION. SISTER/HCP HARRISON UPDATED. S TRANSPORT BOOKED FOR 4 PM VIA [facility]. RN UPDATED. CM WILL AWAIT AUTH FROM [employer].
--- NOTE | 2023-11-23 12:08 | PM.DS ---
DS: Providers Provider Date of Service: 11/23/23 Date of admission: 11/21/23 18:50 Primary care physician: Jordan Willis MD Consults: 11/20/23 23:08 Consult to Case Management Stat Comment: Consult to Psychiatry Stat Consulting Provider: Melissa Carlson Reason for consultation: progressive confusion 2wks w/ treted bacteremia, new visual hallucinations Has provider been notified: Yes 11/21/23 18:55 Consult to Neurology Routine Consulting Provider: [facility] Reason for consultation: ?AMS, ?NPH 11/22/23 12:49 Consult to Nephrology Routine Consulting Provider: Christo Sparks Reason for consultation: encephalopathy.?kel vs ckd Has provider been notified: No Attending physician on discharge: Cris Cummings Discharging clinician: Cris Cummings DS: Diagnosis Discharge Diagnosis (1) Encephalopathy: Status: Acute (2) Hyperglycemia: Status: Acute DS: Summary Hospital Course Hospital Course: HPI:63-year-old male with a PMH significant for HTN, HLD, CKD 3, insulin-dependent diabetes type 2,?GERD, BUD on CPAP, and mood disorder who presents to the ED from nephrology office for evaluation of increasing confusion and lethargy. Pt is currently a resident of [facility] at [facility] [place]. Was initially admitted to [facility] on 11/02-11/06?and treated for sepsis, metabolic encephalopathy, and severe cystitis with bilateral ascending pyelitis and pyelonephritis. Was discharged with midline and on 2 weeks of ertapenem with last dose yesterday morning. Nursing staff at [facility] report patient has become more confused since discharge with gait change where he is unable to stand. Apparently at baseline needs a lot of redirection and encouragement to follow directions, but is not confused. Patient's HPC/sister reports patient has had recent falls, reportedly at least 4, in the past few days without any workup. Unclear if there have been any head strikes. Sister also notes patient has reported seeing bugs crawling on the ceiling which is something new for him. CT of head showed no acute intracranial pathology, but question of normal pressure hydrocephalus. Patient was initially placed in physician observation with PT/case management evaluation as patient's family requested he not be returned to [place] rehab. Psychology consult made for possible placement, but evaluation showed magnetic gait and increasing suspicion for NPH and did not feel patient was medically cleared to be on a psychiatric unit. Patient himself seems pleasantly confused. Believes he is at a ?house? in [place]. Is able to identify the year as 2023, and believes he is here because of infection in his groin and in his lower back. Also complains of chronic bilateral lower leg pain secondary to diabetic neuropathy. No other acute medical complaints. Denies fever, chills, nausea, vomiting, abdominal pain. No chest pain/pressure, palpitations. Denies shortness of breath. No headache, or acute vision changes. In the ED pt was hypertensive up to 176/91, vitals otherwise WNL. Labs were significant for BUN 45 with creatinine 3.11, andrandom glucose is high as 444, otherwise grossly unremarkable and at baseline. No leukocytosis. Stable H&H. No significant electrolyte abnormalities. UA negative for UTI. CT of head showed no evidence of acute intracranial hemorrhage or edematous territorial infarction, but showed moderate underlying microangiopathy and a degree of generalized cerebral volume loss with prominence of both ventricles and sulcal spaces, possibly representing normal pressure hydrocephalus. Pt was treated with insulin 10 units. Pt will be admitted to the hospital under observation for further evaluation of acute metabolic encephalopathy in the setting of possible normal pressure hydrocephalus. Hospital course: Patient was admitted for question of acute encephalopathy-unclear etiology : Workup including UA, chest x-ray, electrolytes-seems fine, blood culture negative at 48 hours, not hypoxic, VBG also seems fine, CT head and MRI also done and reviewed by neurology:no acute abnormality,mild cerebellar and cerebral atrophy with slightly out of proportion ventriculomegaly, and microvascular ischemic changes. Patient seems some hydration in ED, creatinine improving to 3.1, Patient mental status improved to the baseline . Patient creatinine was also running in 3.5-3.7 days in [facility]-possible has ckd 3. Monitor BMP outpatient. neurology recomended : Outpatient EMG nerve conduction study of legs can be ranged to review type and severity of neuropathy. As far as the issue of normal-pressure hydrocephalus is concerned, it can be followed up as an outpatient . plan: Monitor BMP outpatient. Outpatient EMG nerve conduction study of legs can be ranged to review type and severity of neuropathy. As far as the issue of normal-pressure hydrocephalus is concerned, it can be followed up as an outpatient . above management discussed with the patient family in detail length. Assessment and plan coordination time spent 45 minute. Time Attestation Total time managing care of this patient today: 45 mintues. Discharge Coordination Time (in mins): 45 min Quality: Safe Use of Opioids Does Pt have an Active Cancer Diagnosis on the Problem List?: No Quality: Stroke Does the patient have a stroke diagnosis?: No Physical Exam Vital Signs: Vital Signs: Last Vital Signs Temp 98.4 F 11/23/23 07:17 Pulse 70 11/23/23 07:17 Resp 20 11/23/23 07:17 BP 157/79 H 11/23/23 07:17 Pulse Ox 95 11/23/23 07:17 O2 Del Method Room Air 11/23/23 07:17 BMI result Body Mass Index 47.3 Appearance: Alert.? Oriented X3.? cvs: rrr, [id number] , no murmur res: clear to auscultation ,no rhonchii or wheezing abd: no rebound or guarding ,nt, bs present. ext pulses present , no cyanosis . neuro: moves all ext DS: Data Data Completed and Pending Labs on day of discharge: Laboratory Results - last 24 hr 11/22/23 11/22/23 11/22/23 16:01 16:45 20:17 POC Glucose 333 H 239 H Urine Opiates Screen Urine Fentanyl Screen Ur Barbiturates Screen Ur Phencyclidine Scrn Ur Amphetamines Screen U Benzodiazepines Scrn Urine Cocaine Screen U Marijuana (THC) Screen Respiratory Panel Aguirre See Note Adenovirus (Rapid PCR) Not Detected B.pert (TEM-PCR) Not Detected B.parapertussis DNA PCR Not Detected C. pneumoniae DNA (PCR) Not Detected Coronavirus OC43 (PCR) Not Detected Coronavirus HKU1 (PCR) Not Detected Coronavirus 229E (PCR) Not Detected Coronavirus NL63 (PCR) Not Detected Human Metapneumovir PCR Not Detected Influenza A (RT-PCR) Not Detected Influenza B (RT-PCR) Not Detected M. pneumoniae (PCR) Not Detected Parainfluenza 1 (PCR) Not Detected Parainfluenza 2 (PCR) Not Detected Parainfluenza 3 (PCR) Not Detected Parainfluenza 4 (PCR) Not Detected RSV (PCR) Not Detected Entero/Rhino (PCR) Not Detected SARS-CoV-2 RNA (RT-PCR) Not Detected 11/22/23 11/23/23 11/23/23 23:48 07:19 11:18 POC Glucose 141 H 233 H Urine Opiates Screen Not Detected Urine Fentanyl Screen Not Detected Ur Barbiturates Screen Not Detected Ur Phencyclidine Scrn Not Detected Ur Amphetamines Screen Not Detected U Benzodiazepines Scrn Not Detected Urine Cocaine Screen Not Detected U Marijuana (THC) Screen Not Detected Respiratory Panel [place] Adenovirus (Rapid PCR) B.pert (TEM-PCR) B.parapertussis DNA PCR C. pneumoniae DNA (PCR) Coronavirus OC43 (PCR) Coronavirus HKU1 (PCR) Coronavirus 229E (PCR) Coronavirus NL63 (PCR) Human Metapneumovir PCR Influenza A (RT-PCR) Influenza B (RT-PCR) M. pneumoniae (PCR) Parainfluenza 1 (PCR) Parainfluenza 2 (PCR) Parainfluenza 3 (PCR) Parainfluenza 4 (PCR) RSV (PCR) Entero/Rhino (PCR) SARS-CoV-2 RNA (RT-PCR) Preliminary micro results at discharge 11/20/23 17:51 Blood Culture - Preliminary Blood - Venous No growth after 48 hours. 11/20/23 17:28 Blood Culture - Preliminary Blood - Venous No growth after 48 hours. Imaging Chest x-ray: Radiologist's impression: ITS Impressions Head CT 11/20/23 22:15 IMPRESSION: 1. No evidence of acute intracranial hemorrhage or edematous territorial infarction. 2. Moderate underlying microangiopathy. 3. There is a degree of generalized cerebral volume loss with prominence of both the ventricles and sulcal spaces. However, there appears to be mildly disproportionate prominence of the ventricles. This may be due to disproportionate central volume loss; however, correlation with symptoms of potential superimposed normal pressure hydrocephalus is recommended. Brain MRI 11/22/23 13:25 IMPRESSION: 1. No acute intracranial abnormalities. 2. Moderate underlying microangiopathy. 3. There is a degree of generalized cerebral volume loss with prominence of both the ventricles and sulcal spaces. However, there appears to be mildly disproportionate prominence of the ventricles. This may be due to disproportionate central volume loss; however, correlation with symptoms of potential superimposed normal pressure hydrocephalus is recommended. Discharge Plan Discharge Anticipated Discharge Date/Time: 11/23/23 11:54 Patient Disposition: er SNF Discharge Diagnosis: possible encephalopathy -improved,possible ckd stage 3, possible Multifactorial gait disorder Referrals: [facility] [Outside] - 1 Week (TRANSFER FOR SHORT TERM REHAB) Jordan Willis MD [Primary Care Provider] - 1 Week Discharge Medications: Continued atorvastatin 40 mg Tablet 40 mg PO BEDTIME trazodone 50 mg Tablet 25 mg PO BEDTIME Rx Instructions: may repeat once hydralazine 25 mg Tablet 75 mg PO TID aspirin 81 mg Tablet,Delayed Release (Dr/Ec) 162 mg PO BEDTIME acetaminophen 500 mg Tablet 1,000 mg PO Q4H PRN (Reason: Fever Or Pain) pantoprazole 20 mg Tablet,Delayed Release (Dr/Ec) 20 mg PO DAILY famotidine 20 mg Tablet 20 mg PO BID amlodipine 10 mg Tablet 10 mg PO DAILY Fleet Enema 19-7 gram/118 mL Enema 118 ml [place] DAILY PRN (Reason: Constipation) sertraline 50 mg Tablet 50 mg PO DAILY insulin aspart U-100 [Novolog FlexPen U-100 Insulin] 100 unit/mL (3 mL) Insulin Pen 1 sliding scale dose SUBCUT USEASDIRECTD Rx Instructions: if 200-249 = 2 units, 250-299 = 4 units, 300-349 = 6 units, 350-399 = 8 units, 400-449 = 12 units, 450-499 = 14 units, call MD for BS greater than 500 insulin glargine [Lantus Solostar U-100 Insulin] 100 unit/mL (3 mL) insulin pen 50 unit subcut BEDTIME melatonin 10 mg Tablet 10 mg PO BEDTIME bupropion HCl 450 mg tablet extended release 24 hr 450 mg PO DAILY Mounjaro 7.5 mg/0.5 mL Pen Injector 7.5 mg SUBCUT QWEEK Rx Instructions: sundays Discharge Orders: Discharge Order (Routine); Ordered 11/23/23 Ordered By: Cris Cummings Diet: Advance to usual diet Activity on Discharge: As tolerated Stand Alone Forms: Patient Portal Discharge page Print Language: Bengali Care Plan Goals: Patient was admitted for question of acute encephalopathy-unclear etiology : Workup including UA, chest x-ray, electrolytes-seems fine, blood culture negative at 48 hours, not hypoxic, VBG also seems fine, CT head and MRI also done and reviewed by neurology:no acute abnormality,mild cerebellar and cerebral atrophy with slightly out of proportion ventriculomegaly, and microvascular ischemic changes. neurology recomended : Outpatient EMG nerve conduction study of legs can be ranged to review type and severity of neuropathy. As far as the issue of normal-pressure hydrocephalus is concerned, it can be followed up as an outpatient . above management discussed with the patient family in detail length. Health Concerns: As above. Plan of Treatment: As above. Assessment: As above.
--- NOTE | 2023-11-23 12:58 | HO.PM.IMPN ---
Subjective Subjective Date of Service: 11/23/23 Interval History: encephalopathy Physical Exam Vital Signs: Vital Signs: Last Vital Signs Temp 98.4 F 11/23/23 07:17 Pulse 70 11/23/23 07:17 Resp 20 11/23/23 07:17 BP 157/79 H 11/23/23 07:17 Pulse Ox 95 11/23/23 07:17 O2 Del Method Room Air 11/23/23 07:17 BMI result Body Mass Index 47.3 Objective Data Active Medications Acetaminophen (Acetaminophen 325 Mg Tablet) 975 mg PO Q4H PRN PRN Reason: Fever Or Pain Amlodipine Besylate (Amlodipine Besylate 10 Mg Tablet) 10 mg PO DAILY [facility]; Protocol Last Admin: 11/23/23 07:54 Dose: 10 mg Documented By: DYLAN Aspirin (Aspirin Enteric Coated 81 Mg Tablet.) 162 mg PO BEDTIME [facility] Last Admin: 11/22/23 20:45 Dose: 162 mg Documented By: BOB Atorvastatin Calcium (Atorvastatin Calcium 40 Mg Tablet) 40 mg PO BEDTIME [facility] Last Admin: 11/22/23 20:46 Dose: 40 mg Documented By: BOB Bupropion HCl (Bupropion Hcl Xl 150 Mg Tab.Er.24h) 450 mg PO DAILY [facility] Last Admin: 11/23/23 07:54 Dose: 450 mg Documented By: DYLAN Docusate Sodium (Docusate Sodium 100 Mg Capsule) 100 mg PO DAILY PRN PRN Reason: Constipation Enoxaparin Sodium (Enoxaparin Sodium 40 Mg/0.4 Ml Syringe) 40 mg SUBCUT Q24H [facility] Last Admin: 11/22/23 18:24 Dose: 40 mg Documented By: DYLAN Famotidine (Famotidine 20 Mg Tablet) 20 mg PO BID [facility] Last Admin: 11/23/23 07:54 Dose: 20 mg Documented By: DYLAN Glucose (Glucose Gel 15 Gm Gel..Gram.) 15 gm PO Q15M PRN; Protocol PRN Reason: per Hypoglycemia Standing Ord. Hydralazine HCl (Hydralazine Hcl 25 Mg Tablet) 75 mg PO TID [facility]; Protocol Last Admin: 11/23/23 07:54 Dose: 75 mg Documented By: DYLAN Dextrose (D10) 250 mls @ 750 mls/hr IV Q15M PRN PRN Reason: per Hypoglycemia Standing Ord. Insulin Glargine (Insulin Glargine,Hum.Rec.Anlog 100 Unit/Ml 10 Ml Vial) 50 unit SUBCUT BEDTIME [facility] Last Admin: 11/22/23 20:44 Dose: 50 unit Documented By: BOB Insulin Human Lispro (Insulin Lispro 100 Unit/Ml 3 Ml Vial) 0 unit SUBCUT QIDACHS [facility]; Protocol Last Admin: 11/23/23 11:38 Dose: 4 unit Documented By: DYLAN Melatonin (Melatonin 3 Mg Tablet) 9 mg PO BEDTIME [facility] Last Admin: 11/22/23 20:45 Dose: 9 mg Documented By: BOB Omeprazole (Omeprazole 20 Mg Capsule.Dr) 20 mg PO DAILY@0630 [facility] Last Admin: 11/23/23 07:53 Dose: 20 mg Documented By: DYLAN Sertraline HCl (Sertraline Hcl 50 Mg Tablet) 50 mg PO DAILY [facility] Last Admin: 11/23/23 07:54 Dose: 50 mg Documented By: DYLAN Sodium Biphosphate/Sodium Phosphate (Sodium Phosphate,Jay-Dibasic 133 Ml Enema) 118 ml [place] DAILY PRN PRN Reason: Constipation Sodium Chloride (0.9 % Sodium Chloride Flush 3 Ml Syringe) 3 ml IVFLUSH QSHIFT [facility] Last Admin: 11/23/23 07:53 Dose: 3 ml Documented By: DYLAN Trazodone HCl (Trazodone Hcl 25 Mg Halftab) 25 mg PO BEDTIME [facility] Last Admin: 11/22/23 20:46 Dose: 25 mg Documented By: BOB Labs 11/20/23 17:26 11/21/23 13:19 Labs: Laboratory Results - last 24 hr 11/22/23 11/22/23 11/22/23 16:01 16:45 20:17 POC Glucose 333 H 239 H Urine Opiates Screen Urine Fentanyl Screen Ur Barbiturates Screen Ur Phencyclidine Scrn Ur Amphetamines Screen U Benzodiazepines Scrn Urine Cocaine Screen U Marijuana (THC) Screen Respiratory Panel [place] See Note Adenovirus (Rapid PCR) Not Detected B.pert (TEM-PCR) Not Detected B.parapertussis DNA PCR Not Detected C. pneumoniae DNA (PCR) Not Detected Coronavirus OC43 (PCR) Not Detected Coronavirus HKU1 (PCR) Not Detected Coronavirus 229E (PCR) Not Detected Coronavirus NL63 (PCR) Not Detected Human Metapneumovir PCR Not Detected Influenza A (RT-PCR) Not Detected Influenza B (RT-PCR) Not Detected M. pneumoniae (PCR) Not Detected Parainfluenza 1 (PCR) Not Detected Parainfluenza 2 (PCR) Not Detected Parainfluenza 3 (PCR) Not Detected Parainfluenza 4 (PCR) Not Detected RSV (PCR) Not Detected Entero/Rhino (PCR) Not Detected SARS-CoV-2 RNA (RT-PCR) Not Detected 11/22/23 11/23/23 11/23/23 23:48 07:19 11:18 POC Glucose 141 H 233 H Urine Opiates Screen Not Detected Urine Fentanyl Screen Not Detected Ur Barbiturates Screen Not Detected Ur Phencyclidine Scrn Not Detected Ur Amphetamines Screen Not Detected U Benzodiazepines Scrn Not Detected Urine Cocaine Screen Not Detected U Marijuana (THC) Screen Not Detected Respiratory Panel [place] Adenovirus (Rapid PCR) B.pert (TEM-PCR) B.parapertussis DNA PCR C. pneumoniae DNA (PCR) Coronavirus OC43 (PCR) Coronavirus HKU1 (PCR) Coronavirus 229E (PCR) Coronavirus NL63 (PCR) Human Metapneumovir PCR Influenza A (RT-PCR) Influenza B (RT-PCR) M. pneumoniae (PCR) Parainfluenza 1 (PCR) Parainfluenza 2 (PCR) Parainfluenza 3 (PCR) Parainfluenza 4 (PCR) RSV (PCR) Entero/Rhino (PCR) SARS-CoV-2 RNA (RT-PCR) Microbiology Microbiology Results: Microbiology 11/20/23 17:51 Blood Culture - Preliminary Blood - Venous No growth after 48 hours. 11/20/23 17:28 Blood Culture - Preliminary Blood - Venous No growth after 48 hours. Assessment and Plan (1) Encephalopathy: Status: Acute (2) Hyperglycemia: Status: Acute Plan 63-year-old male with a PMH significant for HTN, HLD, CKD 3, insulin-dependent diabetes type 2,?GERD, BUD on CPAP, and mood disorder who presents to the ED from [facility] for evaluation of increasing confusion and lethargy. Pt will be admitted to the hospital under observation for further evaluation of acute metabolic encephalopathy in the setting of possible normal pressure hydrocephalus. Acute encephalopathy-unclear etiology confusion somewhat improving,denies hallucinating . workup: electrolytes ,ua ,cxr -seems fine no fever, blood culture prelim neg@24hrs , no hypoxia ,vbg is also fine CT of head negative for acute pathology, but question of normal pressure hydrocephalus will add urine drug screen,respiratory viral panel. Neurology consult noted -added MRI. ? [facility]-outpatient [facility] outpatient . Monitor mentation guerita CKD 3: recieved iv hydration in ed. Creatinine 3.11, stable, in line with labs at [facility]. Sparks will follow up. Hx of UTI Was seen and evaluated at [facility] on11/02-11/06 for acute encephalopathy in setting of UTI with pyelonephritis Completed 2 week course of ertapenem yesterday UA today negative for UTI No indication to resume antibiotics at this time, will try removal of midline. HTN-Continue amlodipine, hydralazine HLD-Continue atorvastatin Insulin-dependent diabetes type 2 with hyperglycemia: Place on SSI, diabetic diet Continue home Lantus,adjusted sliding scale. GERD Continue with famotidine, ppi Mood disorder Continue bupropion, sertraline Obesity class III Encourage weight loss,cut down calories. As per family sister -patient is full code, will change code status to full code. DVT Prophylaxis: Lovenox ongoing hospitlisation need : for further evaluation of acute encephalopathy unclear etiology- need workup for encephalopathy, pt eval , menatl status monitering ,as wellas nephrology input for kel vs ckd -and further workup-renal function/electrolytes monitering, dm with hyperglycemia -need fs monitering/insulin regimen adjustement, as well as need Pt input for possible rehab placement. Quality Stroke Does the patient have a stroke diagnosis?: No VTE Prior VTE?: No VTE Risk Level:: Medical - moderate - high VTE Device Contraindication: Treatment Not Indicated VTE Drug Contraindication: N/A - Med Ordered
--- NOTE | 2023-11-23 13:14 | P.CONNP_ITS ---
History of Present Illness Reason for Consult Consult date: 11/24/23 Chief Complaint Chief complaint: AMS, ?NPH PMFSH Past Medical History Medical History (Updated 11/22/23 @ 09:31 by Balbir Colindres MD) GERD (gastroesophageal reflux disease) Insulin dependent type 2 diabetes mellitus HLD (hyperlipidemia) HTN (hypertension) CKD stage 3b, GFR 30-44 ml/min Social History Social History Household Members: None Housing: Apartment Do you presently have visiting nurse or other home services: No Patient Tobacco Use Status: Former Tobacco user Advance Directives Date on File: 11/21/23 Meds Allergies Allergy/AdvReac Type Severity Reaction Status Date / Time Unable to Assess Allergy Verified 11/20/23 16:18 Active Medications: Current Medications Acetaminophen (Acetaminophen 325 Mg Tablet) 975 mg PO Q4H PRN PRN Reason: Fever Or Pain Amlodipine Besylate (Amlodipine Besylate 10 Mg Tablet) 10 mg PO DAILY [facility]; Protocol Last Admin: 11/23/23 07:54 Dose: 10 mg Aspirin (Aspirin Enteric Coated 81 Mg Tablet.Dr) 162 mg PO BEDTIME [facility] Last Admin: 11/22/23 20:45 Dose: 162 mg Atorvastatin Calcium (Atorvastatin Calcium 40 Mg Tablet) 40 mg PO BEDTIME [facility] Last Admin: 11/22/23 20:46 Dose: 40 mg Bupropion HCl (Bupropion Hcl Xl 150 Mg Tab.Er.24h) 450 mg PO DAILY [facility] Last Admin: 11/23/23 07:54 Dose: 450 mg Docusate Sodium (Docusate Sodium 100 Mg Capsule) 100 mg PO DAILY PRN PRN Reason: Constipation Enoxaparin Sodium (Enoxaparin Sodium 40 Mg/0.4 Ml Syringe) 40 mg SUBCUT Q24H [facility] Last Admin: 11/22/23 18:24 Dose: 40 mg Famotidine (Famotidine 20 Mg Tablet) 20 mg PO BID [facility] Last Admin: 11/23/23 07:54 Dose: 20 mg Glucose (Glucose Gel 15 Gm Gel..Gram.) 15 gm PO Q15M PRN; Protocol PRN Reason: per Hypoglycemia Standing Ord. Hydralazine HCl (Hydralazine Hcl 25 Mg Tablet) 75 mg PO TID [facility]; Protocol Last Admin: 11/23/23 07:54 Dose: 75 mg Dextrose (D10) 250 mls @ 750 mls/hr IV Q15M PRN PRN Reason: per Hypoglycemia Standing Ord. Insulin Glargine (Insulin Glargine,Hum.Rec.Anlog 100 Unit/Ml 10 Ml Vial) 50 unit SUBCUT BEDTIME [facility] Last Admin: 11/22/23 20:44 Dose: 50 unit Insulin Human Lispro (Insulin Lispro 100 Unit/Ml 3 Ml Vial) 0 unit SUBCUT QIDACHS [facility]; Protocol Last Admin: 11/23/23 11:38 Dose: 4 unit Melatonin (Melatonin 3 Mg Tablet) 9 mg PO BEDTIME [facility] Last Admin: 11/22/23 20:45 Dose: 9 mg Omeprazole (Omeprazole 20 Mg Capsule.Dr) 20 mg PO DAILY@0630 [facility] Last Admin: 11/23/23 07:53 Dose: 20 mg Sertraline HCl (Sertraline Hcl 50 Mg Tablet) 50 mg PO DAILY [facility] Last Admin: 11/23/23 07:54 Dose: 50 mg Sodium Biphosphate/Sodium Phosphate (Sodium Phosphate,[place]-Dibasic 133 Ml Enema) 118 ml [place] DAILY PRN PRN Reason: Constipation Sodium Chloride (0.9 % Sodium Chloride Flush 3 Ml Syringe) 3 ml IVFLUSH QSHIFT [facility] Last Admin: 11/23/23 07:53 Dose: 3 ml Trazodone HCl (Trazodone Hcl 25 Mg Halftab) 25 mg PO BEDTIME [facility] Last Admin: 11/22/23 20:46 Dose: 25 mg Home Medications ?Medication ?Instructions ?Recorded ?Confirmed ?Last Taken ?Type acetaminophen 500 mg tablet 1,000 mg PO Q4H PRN Fever Or Pain 11/21/23 11/21/23 Unknown History amlodipine 10 mg tablet 10 mg PO DAILY 11/21/23 11/21/23 Unknown History aspirin 81 mg tablet,delayed 162 mg PO BEDTIME 11/21/23 11/21/23 Unknown History release atorvastatin 40 mg tablet 40 mg PO BEDTIME 11/21/23 11/21/23 Unknown History bupropion HCl 450 mg 24 hr tablet, 450 mg PO DAILY 11/21/23 11/21/23 Unknown History extended release famotidine 20 mg tablet 20 mg PO BID 11/21/23 11/21/23 Unknown History hydralazine 25 mg tablet 75 mg PO TID 11/21/23 11/21/23 Unknown History insulin aspart U-100 100 unit/mL 1 sliding scale dose subcut 11/21/23 11/21/23 Unknown History (3 mL) subcutaneous pen (Novolog USEASDIRECTD FlexPen U-100 Insulin aspart) insulin glargine 100 unit/mL (3 50 unit subcut BEDTIME 11/21/23 11/21/23 Unknown History mL) subcutaneous pen (Lantus Solostar U-100 Insulin) melatonin 10 mg tablet 10 mg PO BEDTIME 11/21/23 11/21/23 Unknown History pantoprazole 20 mg tablet,delayed 20 mg PO DAILY 11/21/23 11/21/23 Unknown History release sertraline 50 mg tablet 50 mg PO DAILY 11/21/23 11/21/23 Unknown History sodium phosphates 19 gram-7 118 ml [place] DAILY PRN Constipation 11/21/23 11/21/23 Unknown History gram/118 mL enema (Fleet Enema) tirzepatide 7.5 mg/0.5 mL 7.5 mg subcut QWEEK 11/21/23 11/21/23 Unknown History subcutaneous pen injector (Mounjaro) trazodone 50 mg tablet 25 mg PO BEDTIME 11/21/23 11/21/23 Unknown History Physical Exam Vital Signs: Last Vital Signs Temp 98.4 F 11/23/23 07:17 Pulse 70 11/23/23 07:17 Resp 20 11/23/23 07:17 BP 157/79 H 11/23/23 07:17 Pulse Ox 95 11/23/23 07:17 O2 Del Method Room Air 11/23/23 07:17 BMI result Body Mass Index 47.3 Results Lab Results 11/20/23 17:26 11/21/23 13:19 Lab results: Chemistry 11/20/23 11/21/23 17:26 13:19 Sodium 140 142 Potassium 4.8 4.4 Carbon Dioxide 25 24 BUN 50 H 45 H Creatinine 3.57 H 3.11 H Calcium 9.1 8.9 Hematology 11/20/23 17:26 WBC 7.1 Hgb 11.9 L Plt Count 284 Urinalysis 11/20/23 19:29 Urine Color Yellow Urine Appearance Clear Urine pH 5.5 Ur Specific [place] 1.025 Urine Protein >=1000 (4+) H Urine Glucose (UA) >=1000 H Urine Ketones Negative Urine Blood Negative Urine Nitrite Negative Ur Leukocyte Esterase Negative Urine RBC 0-2 Urine WBC 0-5 Ur Squamous Epith Cells 0-2 Hyaline Casts 0-2 Procedures Date of Service Date of Service: 11/24/23
--- NOTE | 2023-11-23 15:00 | PC.NURSE ---
All relevant paperwork sent to SNF.
[2023-11-23 15:42] VITALS: BP 171/85; PULSE 76; RESP 20; TEMP 36.2; O2SAT 96
--- NOTE | 2023-11-23 16:07 | CONS_ITS ---
DATE OF SERVICE: 11/22/2023 REASON FOR CONSULTATION: I was asked to see patient to assist in evaluation and management of patient's acute kidney injury on advanced chronic kidney disease as reflected by creatinine of 3.57 on admission on the where his baseline creatinine is usually in the 2 to 2.5 range. HISTORY OF PRESENT ILLNESS: In summary, the patient is a 63-year-old gentleman with multiple chronic medical problems including advanced chronic kidney disease, baseline creatinine 2 to 2.5 range along with hypertension, hyperlipidemia, diabetes, GERD, obstructive sleep apnea, who actually came to my office on the , and I sent him over to the emergency room because he was a bit lethargic and his sugars are running high. I contacted the ER after hours and I was led to the impression that they had sent him back to the [facility], but actually got admitted to the hospital because he was still somewhat lethargic. Overall, he is feeling better now. His sister was at the bedside, tells me that she thinks he is doing better as well. The patient has had a full evaluation with neurology, CT scan, and now is scheduled for an MRI. His blood sugars are doing much better. His creatinine has improved a bit down to 3.1, which may be his new baseline. PAST MEDICAL HISTORY: As mentioned above. MEDICATIONS: His medications on admission noted in the admitting notes. Current medications are noted on the MAR. SOCIAL HISTORY: He is a nonsmoker, nondrinker. No illicit drug use. FAMILY HISTORY: Noncontributory. REVIEW OF SYSTEMS: As noted above. PHYSICAL EXAMINATION: VITAL SIGNS: Blood pressure of 150/60 with a heart rate in the 80s. HEENT: Head is atraumatic and normocephalic. Mucous membranes are moist. LUNGS: Breath sounds bilaterally. CARDIAC: Regular rate and rhythm. ABDOMEN: Soft. EXTREMITIES: Show trace edema. There is no asterixis. LABORATORY DATA: Sodium 142, potassium 4.4, chloride 109, bicarb 24, BUN 45, creatinine 3.11. His UA showed 4+ protein in the urine. IMPRESSION: 63-YEAR-OLD DIABETIC WITH ACUTE KIDNEY INJURY ON ADVANCED CHRONIC KIDNEY DISEASE, HYPERGLYCEMIA AND ALTERED MENTAL STATUS. 1. Acute kidney injury. Renal function actually has improved a bit. Creatinine down to 3.1, which may be his new baseline. His workup in the past was consistent with diabetic hypertensive renal disease. He has not had a kidney biopsy. He has some bladder scan to make sure he does have urinary retention contributing to his worsening renal function. 2. Altered mental status. This seems to be improved and a question whether he has hypoglycemia was the culprit. 3. Decondition. He is currently in a half-way facility. 4. 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 We will check his PTH and phosphorus and treat accordingly. RECOMMENDATIONS: At this time include continue his current medications. Avoid nephrotoxins. Track urine output and renal function. I have talked with his sister at length, and we will make sure that we continue to follow him as an outpatient because he is at high risk for progression of kidney disease to the point of ESRD and needing dialysis. We will follow the patient with the team. MD HOWARD Redmond/TARA / [phone]
[2023-11-23 16:09] LABS: Glucose, Whole Blood 304 mg/dL (60-115)
== END 2023-11-23 16:32 | disposition skilled nursing facility (03) ==
LOC: HO.ED 11-21 10:51 → HO.EDOVER 11-21 19:06 → HO.S3 11-22 07:31
PROVIDERS: Nurse Practitioner Family; Physician Assistant Medical; Social Worker; Admitting Provider Student in an Organized Health Care Education/Training Program; Emergency Provider Emergency Medicine; PCP General Practice; Visit Provider Internal Medicine
DX: G93.40 Encephalopathy, unspecified (principal); E11.22 Type 2 diabetes mellitus with diabetic chronic kidney disease; I12.9 Hypertensive chronic kidney disease with stage 1 through stage 4 chronic kidney disease, or unspecified chronic kidney disease; N18.30 Chronic kidney disease, stage 3 unspecified; N17.9 Acute kidney failure, unspecified; R44.3 Hallucinations, unspecified; R41.82 Altered mental status, unspecified; R26.89 Other abnormalities of gait and mobility; R32 Unspecified urinary incontinence; E11.65 Type 2 diabetes mellitus with hyperglycemia; R53.83 Other fatigue; M89.8X9 Other specified disorders of bone, unspecified site; Z79.4 Long term (current) use of insulin; Z87.440 Personal history of urinary (tract) infections; Z87.898 Personal history of other specified conditions; Z79.899 Other long term (current) drug therapy
CPT/HCPCS: 36415; 70450; 70551; 80053; 80307; 81001; 82010; 82140; 82803; 82947; 83605; 83880; 84484; 85025; 87040; 87633; 87635; 96372; 97162; 99221; 99285; J1650

== ENCOUNTER → 2023-11-20 16:46 | Outpatient (BNV) | payer MEDICARE, MEDICAID, SELFPAY | PROVIDERS: Emergency Provider Emergency Medicine; PCP General Practice; Visit Provider Social Worker | DX: F29 Unspecified psychosis not due to a substance or known physiological condition (principal); G93.40 Encephalopathy, unspecified | CPT/HCPCS: 99222 ==

== ENCOUNTER → 2023-11-21 18:50 | Outpatient (BNV) | payer MEDICARE, SELFPAY | PROVIDERS: Admitting Provider Student in an Organized Health Care Education/Training Program; Emergency Provider Emergency Medicine; PCP General Practice; Visit Provider Psychiatry & Neurology Neurology | DX: R26.89 Other abnormalities of gait and mobility (principal); I67.82 Cerebral ischemia | CPT/HCPCS: 99222 ==

== ENCOUNTER → 2023-11-21 18:50 | Outpatient (BNV) | payer MEDICARE, SELFPAY | PROVIDERS: Admitting Provider Student in an Organized Health Care Education/Training Program; Emergency Provider Emergency Medicine; PCP General Practice; Visit Provider Student in an Organized Health Care Education/Training Program | DX: G93.41 Metabolic encephalopathy (principal); E11.22 Type 2 diabetes mellitus with diabetic chronic kidney disease; N18.30 Chronic kidney disease, stage 3 unspecified | CPT/HCPCS: 99222; 99231; 99239 ==